=== PATIENT | female | born 1980 | race Caucasian/White ===

== ENCOUNTER → 2017-09-03 07:18 | Outpatient (CLI) | payer OTHER, MEDICAID, SELFPAY ==
--- NOTE | 2017-09-03 07:32 | XR_ITS ---
EXAM: XR cervical spine 5V HISTORY: ITS.REASON: NECK PAIN, LT ARM NEUROPATHY ORDERING PHYSICIAN: Patricia Sanchez PATIENT AGE: 37 years COMPARISON: None FINDINGS: Normal alignment. 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 There is mild posterior osteophyte at C3-C4 with mild degenerative disc disease at C3-C4 and mild left foraminal narrowing at C3-C4 from uncovertebral hypertrophy. There is mild upper cervical curvature convex left. No fracture or dislocation. No lytic or blastic change. IMPRESSION: 1. Klippel-Feil deformity of C2 and C3. 2. Degenerative disc disease C3-C4 with left foraminal narrowing and mild upper cervical curvature convex left
[2017-09-03 07:39] LABS: Basophils % 0.5 % (0.1-2.0); Eosinophils # 0.1 K/mm3 (0.0-0.4); Eosinophils % 0.7 % (0.1-12.0); Hematocrit 40.2 % (37.0-47.0); Lymphocytes % 26.7 K/mm3 (10-50); Mean Corpuscular HGB Conc 32.4 g/dL (31.8-35.4); Mean Corpuscular Hemoglobin 26.6 pg (27.0-31.2); Mean Corpuscular Volume 82.3 fl (81-99); Mean Platelet Volume 7.4 fl (7.4-10.4); Monocytes # 0.4 K/mm3 (0.1-1.0); Monocytes % 4.7 % (1.7-9.3); Neutrophils # 5.1 K/mm3 (1.8-7.8); Neutrophils % 67.4 % (37.0-80.0); Platelet Count 295 K/mm3 (142-424); Red Blood Count 4.88 M/mm3 (4.20-5.40); Red Cell Distribution Width 12.8 % (11.5-17.5); White Blood Count 7.5 K/mm3 (4.8-10.8)
[2017-09-03 08:11] LABS: Hemoglobin A1C 5.6 % (0.0-7.0)
[2017-09-03 08:26] LABS: Alanine Aminotransferase 15 U/L (12-78); Albumin Level 3.6 gm/dL (3.4-5.0); Alkaline Phosphatase 97 U/L (46-116); Anion Gap 12.9 mEq/L (5-15); Aspartate Amino Transferase 12 U/L (15-37); Bilirubin,Total 0.3 mg/dL (0.2-1.0); Blood Urea Nitrogen 11 mg/dL (7-18); Calcium 8.4 mg/dL (8.5-10.1); Carbon Dioxide 28 mmol/L (21.0-32.0); Chloride 104 mmol/L (98-107); Chol/HDL Ratio 3.8 (1-3.5); Cholesterol 208 mg/dL (140-200); Creatinine,Serum 0.81 mg/dL (0.55-1.02); Estimated Glomerular Filt Rate 80 ml/min (>60); GFR (African American) 96 ML/MIN (>60); Globulin 3.5 gm/dl (1.3-3.2); Glucose 103 mg/dL (74-106); HDL Cholesterol 55 mg/dL (29-89); LDL Cholesterol 140 mg/dL (0-130); Magnesium 2.1 mg/dL (1.4-2.2); Potassium 3.9 mmoL/L (3.5-5.1); Sodium 141 mmol/L (136-145); Thyroid Stimulating Hormone 2.45 uIU/ml (0.358-3.740); Total Protein,Serum 7.1 gm/dL (6.4-8.2); Triglycerides 67 mg/dL (30-200); VLDL Cholesterol 13 mg/dL (0-40)
[2017-09-03 08:40] LABS: C-Reactive Protein < 0.2 mg/L (0.0-0.9)
[2017-09-03 10:16] LABS: Erythrocyte Sedimentation Rate 19 mm/hr (0-20)
[2017-09-04 18:27] LABS: Vitamin B12 321 pg/mL (232-1245); Vitamin D 25 Hydroxy 18.7 ng/mL (30.0-100.0)
== END ==
PROVIDERS: PCP Nurse Practitioner Family; Visit Provider Nurse Practitioner Family
DX: M54.2 Cervicalgia (principal); K21.9 Gastro-esophageal reflux disease without esophagitis; G56.82 Other specified mononeuropathies of left upper limb
CPT/HCPCS: 36415; 72050; 80053; 80061; 82607; 82652; 83036; 83735; 84443; 85025; 85651; 86140

== ENCOUNTER → 2017-09-16 08:00 | Outpatient (CLI) | payer OTHER, MEDICAID, SELFPAY ==
--- NOTE | 2017-09-16 | XR_ITS ---
EXAM: XR lumbar spine min 4V HISTORY: ITS.REASON: LOW BACK PAIN ORDERING PHYSICIAN: Patricia Sanchez PATIENT AGE: 37 years COMPARISON: None FINDINGS: Normal alignment. No fracture or dislocation. No lytic or blastic change. No significant degenerative change. The disc spaces are preserved. There is a clip in the central pelvic region and one in the left mid abdominal area. Patient gives history of having tubal ligation. The upper clip could be loose. IMPRESSION: 1. 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 2. Left mid abdominal clip which could be a loose clip from the tubal ligation.
== END ==
PROVIDERS: PCP Nurse Practitioner Family; Visit Provider Nurse Practitioner Family
DX: M54.5 Low back pain (principal)
CPT/HCPCS: 72110

== ENCOUNTER → 2017-09-21 09:22 | Outpatient (CLI) | payer OTHER, MEDICAID, SELFPAY ==
--- NOTE | 2017-09-21 09:25 | US_ITS ---
US transvaginal HISTORY: ITS.REASON: Pelvic Pain, DUB ORDERING PHYSICIAN: Romel Arriola MD PATIENT AGE: 37 years COMPARISON: 01/08/2016 FINDINGS: Uterus measures 9.5 x 3.9 x 5.4 cm. Nabothian cysts are present. Combined endometrial thickness is 0.6 cm. No obvious uterine mass. Left ovary: 2.6 x 2 x 2 cm . Blood flow is present. There are multiple follicles measuring up to 1 cm The right ovary is 4.2 x 2.6 x 3 cm. There is a 2.8 x 1.7 cm cyst involving the right ovary. Blood flow is present in the ovary. Minimal amount fluid in the cul-de-sac. IMPRESSION: Mildly bulky uterus. No endometrial thickening. 1 cm right ovarian cyst. Cul-de-sac fluid
== END ==
PROVIDERS: PCP Nurse Practitioner Family; Visit Provider Obstetrics & Gynecology
DX: N93.8 Other specified abnormal uterine and vaginal bleeding (principal); R10.2 Pelvic and perineal pain
CPT/HCPCS: 76830

== ENCOUNTER → 2017-11-16 14:28 | Outpatient (CLI) | payer OTHER, MEDICAID, SELFPAY ==
[2017-11-16 14:37] LABS: Microscopic, Urine URINE MICROSCOPIC (MICROSCOPIC)
[2017-11-16 14:52] LABS: Appearance,Urine CLEAR (Clear); Bilirubin,Urine Negative (Negative); Blood, Urine TRACE-I (Negative); Color,Urine YELLOW (Yellow); Glucose,Urine (UA) Negative (Negative); Ketones,Urine Negative (Negative); Leukocyte Esterase,Urine Negative (Negative); Nitrate,Urine Negative (Negative); PH,Urine 6.5 (5.0-8.5); Protein,Urine Negative (Negative); Specific Gravity, Urine 1.015 (1.005-1.030); Urobilinogen,Urine 0.2 EU/dl (0.2)
[2017-11-16 14:54] LABS: Basophils % 0.5 % (0.1-2.0); Eosinophils % 0.4 % (0.1-12.0); Hematocrit 39.9 % (37.0-47.0); Hemoglobin 12.6 g/dL (12.2-16.2); Lymphocytes # 2.5 K/mm3 (0.7-4.5); Lymphocytes % 26.6 K/mm3 (10-50); Mean Corpuscular HGB Conc 31.7 g/dL (31.8-35.4); Mean Corpuscular Hemoglobin 26.6 pg (27.0-31.2); Mean Platelet Volume 7.4 fl (7.4-10.4); Monocytes # 0.4 K/mm3 (0.1-1.0); Monocytes % 4.6 % (1.7-9.3); Neutrophils # 6.5 K/mm3 (1.8-7.8); Platelet Count 322 K/mm3 (142-424); Red Blood Count 4.75 M/mm3 (4.20-5.40); Red Cell Distribution Width 12.6 % (11.5-17.5); White Blood Count 9.6 K/mm3 (4.8-10.8)
[2017-11-16 15:25] LABS: RBC,Urine Occasional #/hpf (0-3)
[2017-11-16 15:26] LABS: Bacteria,Urine Trace /lpf
[2017-11-16 16:16] LABS: Alanine Aminotransferase 19 U/L (12-78); Albumin Level 3.6 gm/dL (3.4-5.0); Alkaline Phosphatase 97 U/L (46-116); Anion Gap 11.8 mEq/L (5-15); Aspartate Amino Transferase 18 U/L (15-37); Bilirubin,Total 0.1 mg/dL (0.2-1.0); Blood Urea Nitrogen 10 mg/dL (7-18); Calcium 8.7 mg/dL (8.5-10.1); Carbon Dioxide 29 mmol/L (21.0-32.0); Chloride 104 mmol/L (98-107); Creatinine,Serum 0.88 mg/dL (0.55-1.02); Estimated Glomerular Filt Rate 72 ml/min (>60); GFR (African American) 87 ML/MIN (>60); Globulin 3.6 gm/dl (1.3-3.2); Glucose 79 mg/dL (74-106); Potassium 3.8 mmoL/L (3.5-5.1); Sodium 141 mmol/L (136-145); Total Protein,Serum 7.2 gm/dL (6.4-8.2)
[2017-11-18 10:08] LABS: HCG Qualitative, Serum Negative (Negative)
== END ==
PROVIDERS: PCP Nurse Practitioner Family; Visit Provider Obstetrics & Gynecology
DX: Z01.818 Encounter for other preprocedural examination (principal); N93.8 Other specified abnormal uterine and vaginal bleeding
CPT/HCPCS: 36415; 80053; 81001; 84703; 85025

== ENCOUNTER 2017-11-19 06:02 | Observation (INO) ==
--- NOTE | 2017-11-19 06:59 | Progress Note ---
[facility] Anesthesia Checklist - Structural Data Admitted From: Home Planned Operative Procedure/s: [facility] Consent for Planned Operative Procedure(s) Verified: Yes Verified Documents: Surgical Consent - Airway Assessment C-Spine Mobility Assessed: Yes TMJ Mobility Assessed: Yes Dentition: Good Dentition - Neurological Assessment Level of Consciousness: Awake, Alert, Appropriate - Anesthesia Plan Anesthesia Risk discussed: Yes Anesthesia Plan: Verified ASA Class: I Anesthesia Type: General [facility] Anesthesia HX I have reviewed the patient's past medical history: Yes Medical History: Denies:: Cancer, Diabetes Mellitus Type 1, Diabetes Mellitus Type 2, Internal Pacemaker, MRSA, Seizures Other Medical History: Reports: Anemia, Other. Denies: Blood Transfusion Reaction Other Surgeries: Yes: , Other. No: Pacemaker Amputation: No Fractures: No *Family Hx:: Diabetes, Hypertension, Cancer
--- NOTE | 2017-11-19 09:25 | Operative Note ---
Date of procedure: 11/19/17 Pre-op Diagnosis:: 1. Dysfunctional uterine bleeding 2. Stress incontinence. 3. Retained foreign bodies. Post-op Diagnosis:: 1. Dysfunctional uterine bleeding. 2. Stress urinary incontinence. Procedure performed:: Laparoscopically assisted vaginal hysterectomy. Surgeon:: Romel Arriola MD Finish Sander(s):: MARIA ELENA Cage RESIDENTIAL INSURANCE INSPECTOR:: Ambrose Goss Anesthesia: GETA Estimated blood loss (mL): 300 Operative findings:: 1. Dysfunctional uterine bleeding. 2. Foreign bodies not identified. Operative note:: After the patient was prepped and draped in usual fashion and general anesthesia was administered, examination under a boggy anteverted uterus, with no adnexal masses. A weighted speculum was placed within the posterior fourchette of the vagina, and the anterior lip of the cervix was grasped with a single-tooth tenaculum. A HUMI uterine elevator was inserted into the end manipulation during the laparoscopy. After appropriate regloving, the skin on either side of the umbilicus was tented up with towel clips. A small incision was made in the base of the umbilicus with a knife, and a Veress needle was inserted into the abdominal cavity. After demonstration of negative pressure, an adequate pneumoperitoneum was created with carbon dioxide gas. The Veress needle was then replaced with a trocar and cannula, using the PollVaultr system, and the trocar placed with the laparoscope. The uterus was symmetrically enlarged. Each tube showed evidence of previous ligation. Each ovary appeared normal. There was no pelvic pathology. The pelvis and upper abdomen was explored in an attempt to identify the foreign bodies (clips) that had been seen on the CT scan. However, they were unable to be seen. Returning to the pelvis, after transillumination and under direct visualization, accessory ports were placed in the right and left lower quadrants. Using a combination of endo- Babcocks and Endo TOMMIE staplers, the ovarian pedicles on each side were crossclamped and stapled, the leaving both adnexa in situ. The uterine vessels and the cardinal, uterosacral, and round ligaments were crossclamped and stapled bilaterally. The bladder peritoneum was then taken down with EndoShears. The instruments were then removed, and the abdomen was covered with sterile towels. The procedure was then continued from below. The HUMI was deflated and removed, a weighted speculum was placed within the peer fourchette of the vagina, and the double-tooth tenaculum, and retracted toward the introitus. The cervix was circumcised with a knife, and the vaginal mucosa was sharply and bluntly dissected free. A posterior colpotomy incision was made with Joey scissors, and the long lip of the weighted speculum was placed within the posterior peritoneum. The remaining pedicles on each side were Rafael, cut, and Rafael suture with #1 Vicryl, and then the anterior peritoneum was entered with Metzenbaum scissors, with a long right angle retractor placed within it. The uterus was flipped anteriorly, and the final pedicles were crossclamped and cut, thus removing the boggy uterine specimen. All pedicles were Rafael sutured, and then free tied with #1 Vicryl. There was no undue bleeding. The posterior vaginal cuff was run unlocked with #1 Vicryl, to include the uterosacral ligament pedicles for vaginal support, and a Chamorro fashion, to reduce the enterocele. The anterior peritoneum was closed with a running pursestring suture of 0 Vicryl, and pulled tight. The vaginal mucosa was closed with a running locked anteroposterior suture of #1 Vicryl. The sponge stick was then placed in the vagina for elevation of the vaginal cuff during the follow-up laparoscopy. After appropriate regloving, the pneumoperitoneum was re-established, and the pelvis was inspected with the laparoscope. There was no undue bleeding. The cuff was intact. The pneumoperitoneum was then reduced, and the skin incisions were infused with a dilute solution of Marcaine, as a local anesthetic, and closed with subcuticular sutures of 3-0 Vicryl. The wounds were appropriately dressed. The sponge stick was removed from the vagina. The urine is clear in the Robles catheter. The estimated blood loss was 300 cc. The patient tolerated the procedure well, and was taken to PACU in excellent condition. She will be observed overnight. Condition: stable Disposition: observation Specimens:: Uterus Complications:: None
--- NOTE | 2017-11-19 09:34 | Progress Note ---
[facility] Anesthesia Record Part II Discharge Time: 09:55 Destination: 2nd floor PACU nurse assessment reviewed?: Yes Patient Condition:: Good Anesthesia Complications:: None
--- NOTE | 2017-11-19 09:34 | Progress Note ---
[facility] Anesthesia Record Part I Intake, IV Amount: 1,800 Estimated blood loss (mL): 30 Urine output (mL): 0 Blood Pressure: 105/68 SaO2: 97 Pulse Rate: 77 Respiratory Rate: 16 Temperature: 97.7 F Patient is:: Drowsy, Stable Stable to PACU at:: 09:25
[2017-11-19 10:46] LABS: Hematocrit 34.8 % (37.0-47.0); Hemoglobin 11.1 g/dL (12.2-16.2)
--- NOTE | 2017-11-19 13:26 | Progress Note ---
Internal Medicine - PN: Subj *Date: 11/19/17 *Time: 13:25 (This is day of surgery. The patient is afebrile. Surgeries been explained to the patient. Her vital signs are stable. She is having some difficulty with pain control at this time. Going to remove her Robles and work on pain management.) Exam Vital signs and Labs for Last 24 Hours: Temp Pulse Resp BP Pulse Ox 97.7 F 83 16 111/73 98 11/19/17 11:45 11/19/17 11:45 11/19/17 11:45 11/19/17 11:45 11/19/17 11:45 Laboratory Results - last 24 hr 11/19/17 10:27: Hgb 11.1 L, Hct 34.8 L I & O for Last 24 hours: Intake & Output 11/17/17 11/18/17 11/19/17 11/20/17 11:59 11:59 11:59 11:59 Intake Total 1999 / 1999 Output Total 350 / 350 Balance 1650 / 1650 Weight 170 lb 169 lb 15.975 oz
--- NOTE | 2017-11-20 06:31 | Progress Note ---
Internal Medicine - PN: Subj *Date: 11/20/17 *Time: 06:30 (This is postop day #1. The patient is afebrile. Vital signs stable. Wounds clean. Abdomen soft. She is eating and ambulating and has had a bowel movement. She will be discharged today.) Exam Vital signs and Labs for Last 24 Hours: Temp Pulse Resp BP Pulse Ox 97.7 F 72 18 95/53 98 11/20/17 04:25 11/20/17 04:25 11/20/17 04:25 11/20/17 04:25 11/20/17 04:25 Laboratory Results - last 24 hr 11/19/17 07:33: Urine Color Yellow, Urine Appearance Clear, Urine pH 7.0, Ur Specific [place] 1.025, Urine Protein Negative, Urine Glucose (UA) Negative, Urine Ketones Negative, Urine Blood Trace-i, Urine Nitrate Negative, Urine Bilirubin Negative, Urine Urobilinogen 0.2, Ur Leukocyte Esterase Negative, Urine RBC 3-5, Urine WBC 3-5, Ur Squamous Epith Cells 20-50, Urine Bacteria 2+ A 11/19/17 10:27: Hgb 11.1 L, Hct 34.8 L I & O for Last 24 hours: Intake & Output 11/17/17 11/18/17 11/19/17 11/20/17 11:59 11:59 11:59 11:59 Intake Total 1999 / 1999 480 / 480 Output Total 350 / 350 Balance 1650 / 1650 480 / 480 Weight 170 lb 169 lb 15.975 oz
--- NOTE | 2017-11-20 06:45 | Discharge Summary ---
Hospital Course Hospital Course: This 37-year-old white female was admitted for definitive treatment of dysfunctional uterine bleeding and stress urinary incontinence. On the date of admission, she was taken to the operating room, where she underwent a laparoscopically assisted vaginal hysterectomy, without complications. Her adnexa remain in situ. She has had a previous tubal sterilization with Filshie clips, and a preop CT/ultrasound had shown what appeared to be "floating" clips above the level of the tubes. At surgery, the clips were not able to be identified, but they were not present on the fallopian tubes. Postoperatively, the patient is done well. She is eating and ambulating, and has had a bowel movement. Her wounds are clean. Her abdomen is soft. Her urine output is good. She is not a smoker. She is discharged home on the first postoperative day on Percocet 5/325 (#30), 1 p.o. every 4 hours as needed pain. She is given appropriate instructions as to diet, exercise, and wound care, and she is to return to the office in 2 weeks. Objective Vital signs: Temp Pulse Resp BP Pulse Ox 97.7 F 72 18 95/53 98 11/20/17 04:25 11/20/17 04:25 11/20/17 04:25 11/20/17 04:25 11/20/17 04:25 Results Labs on day of discharge: Labs from last 24 hours 11/19/17 11/19/17 10:27 07:33 Hgb 11.1 L Hct 34.8 L Urine Color Yellow Urine Appearance Clear Urine pH 7.0 Ur Specific [place] 1.025 Urine Protein Negative Urine Glucose (UA) Negative Urine Ketones Negative Urine Blood Trace-i Urine Nitrate Negative Urine Bilirubin Negative Urine Urobilinogen 0.2 Ur Leukocyte Esterase Negative Urine RBC 3-5 Urine WBC 3-5 Ur Squamous Epith Cells 20-50 Urine Bacteria 2+ A Discharge Plan - Patient Discharge Instructions ACTIVITY: Ambulate as tolerated DIET: advance to your usual diet - Follow up Plan Disposition: Home, Self-Jail Medications: Home Medications Medication Instructions Recorded Confirmed Type multivitamin tablet 1 tab PO QAM 09/18/17 11/19/17 History Chlorhexidine Gluconate 1 applic TOPICAL ONCE 11/18/17 11/18/17 History Omeprazole [Omeprazole 40mg 40 mg PO DAILY 11/18/17 11/19/17 History Capsule] Prescriptions/Medication Reconciliation: New Oxycodone HCl/Acetaminophen [Percocet 5/325mg tablet] 1 tab PO Q4HP PRN #30 tablet PRN Reason: Moderate To Severe Pain Continue multivitamin tablet 1 tab PO QAM Omeprazole [Omeprazole 40mg Capsule] 40 mg PO DAILY Chlorhexidine Gluconate 1 applic TOPICAL ONCE
== END 2017-11-20 10:00 | disposition home or self-care (01) ==
LOC: 2ND 06:02 → OR 06:02 → OB 10:15
PROVIDERS: ADMIT Obstetrics & Gynecology; ATTEND Obstetrics & Gynecology

== ENCOUNTER 2018-03-23 12:55 | Observation (INO) ==
--- NOTE | 2018-03-23 13:00 | Emergency Department Note ---
ED Disposition Clinical Impression: Precordial chest pain, Upper abdominal pain Disposition: Still a Patient Condition on Discharge: Fair Referrals: Patricia Sanchez [Primary Care Provider] - - Critical Care Critical Care Time: No Attestation: On , the high probability of a clinically significant, sudden or life threatening deterioration of the following system(s) required my full and direct attention, intervention and personal management. The time I documented below is in addition to time spent performing reported procedures but includes the following listed in this critical care notation. Medical Decision Making - Jaxson Inquiry Pt receiving controlled substance: No Vital Signs: 03/23/18 12:56 03/23/18 13:44 03/23/18 14:23 Temperature 97.9 F Temperature Source Oral Pulse Rate [Right Brachial] 84 78 67 Respiratory Rate 22 20 20 Blood Pressure [Right Arm] 136/74 130/68 129/87 Blood Pressure Mean [Right Arm] 94 88 101 Blood Pressure Source [Right Arm] Automatic Cuff Automatic Cuff Automatic Cuff Blood Pressure Position [Right Arm] Sitting Sitting Sitting 02 Sat by Pulse Oximetry 98 97 99 Oxygen Delivery Method Room Air 03/23/18 14:48 03/23/18 15:34 03/23/18 16:15 Temperature Temperature Source Pulse Rate [Right Brachial] 75 80 67 Respiratory Rate 16 20 20 Blood Pressure [Right Arm] 121/69 129/78 130/85 Blood Pressure Mean [Right Arm] 86 95 100 Blood Pressure Source [Right Arm] Automatic Cuff Automatic Cuff Automatic Cuff Blood Pressure Position [Right Arm] Sitting Sitting Sitting 02 Sat by Pulse Oximetry 100 99 99 Oxygen Delivery Method - Lab Data Lab Results 03/23/18 13:00: WBC 11.8 H, RBC 5.12, Hgb 13.5, Hct 41.5, MCV 81.0, MCH 26.4 L, MCHC 32.7, RDW 13.3, Plt Count 315, MPV 7.0 L, Neut % (Auto) 64.1, Lymph % (Auto ) 30.0, [place] % (Auto) 4.7, Eos % (Auto) 0.7, Baso % (Auto) 0.6, Neut # (Auto) 7.5, Lymph # (Auto) 3.5, [place] # (Auto) 0.6, Eos # (Auto) 0.1, Baso # (Auto) 0.1 03/23/18 13:00: Sodium 139, Potassium 3.3 L, Chloride 101, Carbon Dioxide 29, Anion Gap 12.3, BUN 12, Creatinine 1.25 H, Estimated Creat Clear 79, Estimated GFR 48 L, Est GFR ( Amer) 58 L, Glucose 100, Calcium 9.3, Troponin I < 0.02 03/23/18 13:00: Total Bilirubin 0.3, Direct Bilirubin 0.1, Indirect Bilirubin 0.2, AST 15, ALT 22, Alkaline Phosphatase 100, Total Protein 8.1, Albumin 3.8, Lipase 124 03/23/18 13:00: D-Dimer 317 Result diagrams: 03/23/18 13:00 03/23/18 13:00 Orders (Tests/Meds): ED MEDICATIONS Discontinued Medications Generic Name Dose Route Start Last Admin Trade Name Freq PRN Reason Stop Dose Admin Aspirin 324 mg 03/23/18 13:06 03/23/18 13:06 Aspirin 81mg Enteric Coated Tablet PO 03/23/18 13:07 324 mg ONCE ONE Administration Famotidine 20 mg 03/23/18 13:13 03/23/18 13:24 Pepcid 20mg/2ml Vial IV 03/23/18 13:14 20 mg ONCE ONE Administration Ketorolac Tromethamine 30 mg 03/23/18 13:13 03/23/18 13:24 Toradol 30mg/Ml Vial IV 03/23/18 13:14 30 mg ONCE ONE Administration Morphine Sulfate 4 mg 03/23/18 14:20 03/23/18 14:35 Morphine 4mg/Ml Syringe IV 03/23/18 14:21 4 mg ONCE ONE Administration Ondansetron HCl 4 mg 03/23/18 13:13 03/23/18 13:24 Zofran 4mg/2ml Vial IV 03/23/18 13:14 4 mg ONCE ONE Administration Potassium Chloride 40 meq 03/23/18 13:40 03/23/18 14:09 Klor-Con 20meq Tablet PO 03/23/18 13:41 40 meq ONCE ONE Administration Promethazine HCl 12.5 mg 03/23/18 14:20 03/23/18 14:34 Phenergan 25mg/Ml 1ml Vial IV 03/23/18 14:21 12.5 mg ONCE ONE Administration Sodium Chloride 1,000 ml 03/23/18 13:40 03/23/18 14:09 Sod Chlor 0.9% 1000ml Bag IV 03/23/18 13:41 1,000 ml BOLUS ONE Administration Sodium Chloride 25 ml 03/23/18 14:20 03/23/18 14:35 Sod Chlor 0.9% 25ml Bag IV 03/23/18 14:21 25 ml ONCE ONE Administration ORDERS Category Date Time Status Troponin I Stat Lab 03/23/18 16:16 Received 12-lead EKG Request [ECG Request by /Misbah] Stat Y 03/23/18 13:03 Ordered - Radiology Data #1 Image(s): Chest Image Reviewed: Yes I have reviewed radiologist's interpretation Patchy density right base with elevated diaphragm, questionable atelectasis or infiltrate. Of note, CT scan shows no abnormalities in the lung bases. - CT Data CT Scan: Abdomen, Pelvis Time Received: 16:[address] Reviewed: Yes: I have viewed the radiologist's interpretation Findings Narrative: Fluid in the cul-de-sac. Diverticulosis. No diverticulitis. Lung bases clear. - US Data US Images: Gallbladder ED US Reviewed: Yes: I have viewed radiologist's interpretation Preliminary Findings: Normal/NAD - ECG Data Tracing #1 EKG interpreted by Cash Arredondo MD: Rhythm: sinus tachycardia Rate: 112 [place]: normal Ectopy: none Conduction: normal ST Segment Changes: none T Wave Changes: none Q Waves: none No evidence of acute ischemia or injury Baseline artifact and wander present, but I consider the EKG adequate for accurate interpretation. - Physician Consults Physician Consulted: Bri Time: 16:11 Reason -: Admission Comment/Response: Agrees to admit the patient to the hospital. We discussed the patient's clinical information, including history, exam, laboratory and radiology results and ED course. Per hospital procedure, I will write temporary bridge inpatient orders on the patient. Specific orders requested by the admitting physician: Serial cardiac enzymes, IV fluids, medication for pain and nausea - Reevaluation(s) Time: 14:26 Reevaluation #1: Very nauseated. Pain is a little bit better. Discussed gallbladder ultrasound with Kacy power tool repair technician. She will attempt the ultrasound, if unable to visualize gallbladder she will cancel the test, given that patient's last oral intake was 6 hours ago. General Adult HPI - General Stated complaint: CHEST PAIN Time Seen by Provider: 03/23/18 13:00 - History of Present Illness HPI narrative: Complains of chest pain, epigastric pain, nausea and vomiting since about 7 AM. Had some nausea seems as well. Pain radiates to her back. Also has a sense of acid reflux up into her throat. Coughing, but no hemoptysis. Recently had a hysterectomy 11/19/17. No leg pain or swelling. - Related Data Home Medications Medication Instructions Recorded Confirmed Omeprazole [Omeprazole 40mg 40 mg PO DAILY 11/18/17 03/23/18 Capsule] Allergies Allergy/AdvReac Type Severity Reaction Status Date / Time Penicillins Allergy Verified 03/23/18 13:05 [facility] History I have reviewed the patient's past medical history: Yes Medical History: Denies:: Seizures Other Medical History: Reports: Anemia, Other. Denies: Blood Transfusion Reaction Other Surgeries: Yes: , Tubal Ligation, Other Amputation: No Fractures: No Comment: Primary C/S--1999. BTL--09/21/2001. Dx HSC, Fx D&C, Anterior Repair-- 02/15/2016. Cyst Removed form ovary--02/15/2016. Left leg vein removal--2016. LAVH--11/19/17 - Social History Smoking Status: Never smoker Tobacco Type: cigarettes Alcohol Intake: never Substance Use Type: denies use Family Hx:: Diabetes, Hypertension, Cancer ROS Obtained: Yes All systems reviewed & no additional complaints - Constitutional Constitutional: Denies fever(s) - Cardiovascular Cardiovascular: Reports chest pain, Denies edema, Denies leg edema - Respiratory Respiratory: Yes cough, Yes dyspnea, No coughing up blood - Gastrointestinal Gastrointestingal: Reports: abdominal pain (epigastric), nausea, vomiting Physical Exam - General General appearance: alert, in no apparent distress - Head Head exam: atraumatic, normocephalic, normal inspection - Eye Eye exam: Present: normal appearance, PERRL, EOMI - ENT ENT exam: Present: mucous membranes moist - Neck Neck exam: Present: normal inspection, full ROM, trachea midline. Absent: meningismus, lymphadenopathy - Chest Chest inspection: Present: normal inspection, symmetric chest wall rise. Absent : tenderness - Respiratory Respiratory exam: Present: normal lung sounds bilaterally. Absent: respiratory distress - Cardiovascular Cardiovascular exam: Present: regular rate, normal rhythm. Absent: JVD - Abdominal Exam Abdominal exam: Present: soft, tenderness, normal bowel sounds. Absent: distention, guarding Abdominal tenderness: Present: epigastrium, moderate - Extremities Exam Extremities exam: Present: normal inspection, full ROM, normal capillary refill. Absent: calf tenderness - Back Exam Back exam: Present: normal inspection. Absent: tenderness - Neurological Exam Neurological exam: Present: alert, oriented X3 - Psychiatric Psychiatric exam: Present: anxious - Skin Skin exam: Present: warm, dry, intact, normal color
[2018-03-23 13:21] LABS: Basophils # 0.1 K/mm3 (0-0.2); Basophils % 0.6 % (0.1-2.0); Eosinophils # 0.1 K/mm3 (0.0-0.4); Eosinophils % 0.7 % (0.1-12.0); Hematocrit 41.5 % (37.0-47.0); Hemoglobin 13.5 g/dL (12.2-16.2); Lymphocytes # 3.5 K/mm3 (0.7-4.5); Mean Corpuscular HGB Conc 32.7 g/dL (31.8-35.4); Mean Corpuscular Hemoglobin 26.4 pg (27.0-31.2); Monocytes # 0.6 K/mm3 (0.1-1.0); Monocytes % 4.7 % (1.7-9.3); Neutrophils # 7.5 K/mm3 (1.8-7.8); Neutrophils % 64.1 % (37.0-80.0); Platelet Count 315 K/mm3 (142-424); Red Blood Count 5.12 M/mm3 (4.20-5.40); Red Cell Distribution Width 13.3 % (11.5-17.5); White Blood Count 11.8 K/mm3 (4.8-10.8)
[2018-03-23 13:28] LABS: Anion Gap 12.3 mEq/L (5-15); Blood Urea Nitrogen 12 mg/dL (7-18); Calcium 9.3 mg/dL (8.5-10.1); Carbon Dioxide 29 mmol/L (21.0-32.0); Chloride 101 mmol/L (98-107); Glucose 100 mg/dL (74-106); Potassium 3.3 mmoL/L (3.5-5.1); Sodium 139 mmol/L (136-145)
[2018-03-23 13:32] LABS: Albumin Level 3.8 gm/dL (3.4-5.0); Bilirubin,Direct 0.1 mg/dL (0.0-0.2); Bilirubin,Indirect 0.2 mg/dL (0.0-0.9); Bilirubin,Total 0.3 mg/dL (0.2-1.0); Total Protein,Serum 8.1 gm/dL (6.4-8.2)
[2018-03-24 05:59] LABS: Basophils % 0.6 % (0.1-2.0); Eosinophils # 0.1 K/mm3 (0.0-0.4); Eosinophils % 1.3 % (0.1-12.0); Hematocrit 34.4 % (37.0-47.0); Lymphocytes # 2.6 K/mm3 (0.7-4.5); Lymphocytes % 37.3 K/mm3 (10-50); Mean Corpuscular HGB Conc 32.3 g/dL (31.8-35.4); Mean Corpuscular Hemoglobin 26.8 pg (27.0-31.2); Mean Corpuscular Volume 82.9 fl (81-99); Monocytes # 0.4 K/mm3 (0.1-1.0); Monocytes % 5.1 % (1.7-9.3); Neutrophils # 3.9 K/mm3 (1.8-7.8); Neutrophils % 55.7 % (37.0-80.0); Platelet Count 271 K/mm3 (142-424); Red Blood Count 4.15 M/mm3 (4.20-5.40); Red Cell Distribution Width 13.3 % (11.5-17.5)
[2018-03-24 06:10] LABS: Hemoglobin 11.2 g/dL (12.2-16.2)
[2018-03-24 06:59] LABS: Calcium 7.8 mg/dL (8.5-10.1)
--- NOTE | 2018-03-24 07:17 | Pharmacy Consult Notes ---
[facility] Pharmacy VTE Monitoring - Patient Demographics Admission date: 03/23/18 Report Date: 03/24/18 Time: 07:17 Allergies/Adverse Reactions: Patient Allergies Penicillins Allergy (Verified 03/23/18 13:05) Height: 1.6 m Weight: 80.824 kg Patient Problems: Current Active Problems Precordial chest pain (Acute) Upper abdominal pain (Acute) - VTE Risk Labs: VTE Related Lab Results Hgb 11.2 g/dL (12.2-16.2) L D 03/24/18 05:22 Hct 34.4 % (37.0-47.0) L 03/24/18 05:22 Plt Count 271 K/mm3 (142-424) 03/24/18 05:22 BUN 13 mg/dL (7-18) 03/24/18 05:22 Creatinine 0.92 mg/dL (0.55-1.02) D 03/24/18 05:22 Estimated Creat Clear 107 mL/min (0-300) 03/24/18 05:22 Was VTE Risk Assessment Performed: Yes VTE Score: 2 VTE Risk Level: Very Low Risk - Prophylaxis VTE Prophylaxis Ordered?: Yes Types of VTE Prophylaxis: TEDS Knee High Location of Applied Device: Bilateral Lower Extremeties - VTE Diagnosis Confirmed Treatment or plan recommended: Continue Current Treatment
--- NOTE | 2018-03-24 09:17 | History & Physical Report ---
*Admission Date: 03/23/18 *Chief complaint: abd pain *History of present illness: this wf presents with upper abd pain and was seen in the ed -mplains of chest pain, epigastric pain, nausea and vomiting since about 7 AM. Had some nausea seems as well. Pain radiates to her back. Also has a sense of acid reflux up into her throat. Coughing, but no hemopt- and she had chest pain assoc with this abd pain - pt with pain that did not respond to ed treatment and was admitted for eval and treatment [facility] History I have reviewed the patient's past medical history: Yes Medical History: Denies:: Cancer, Diabetes Mellitus Type 1, Diabetes Mellitus Type 2, Seizures Other Medical History: Reports: Anemia, Other. Denies: Blood Transfusion Reaction Other Surgeries: Yes: , Tubal Ligation, Other Amputation: No Fractures: No - *Social History Educational Level: Completed High School Smoking Status: Never smoker Tobacco Type: cigarettes Alcohol Intake: never Substance Use Type: denies use Occupational Status: employed Housing: house Household Members: spouse, children - Psychiatric History Expresses thoughts of harming self/others: None Suicide Plan Description: No Plan *Family Hx:: Diabetes, Hypertension, Cancer Review of Systems - Review of Systems Review of systems:: pertinent systems reviewed and negative unless documented below - Constitutional Denies fever(s) - Eyes Denies change in vision - ENT Denies sore throat - *Cardiovascular Reports chest pain - *Respiratory Denies cough, Denies coughing up blood - *Gastrointestinal Reports abdominal pain, Reports nausea, Reports vomiting, Denies black, tarry stools - *Genitourinary Denies blood in urine, Denies pelvic pain - *Musculoskeletal Denies joint pain, Denies joint swelling - Integumentary/Breasts Denies rash - *Neurologic Denies headache(s), Denies seizure-like activity - Psychiatric Denies anxiety Meds Home Medications Medication Instructions Recorded Confirmed Type Omeprazole [Omeprazole 40mg 40 mg PO DAILY 11/18/17 03/23/18 History Capsule] SUMAtriptan succinate [Sumatriptan 50 mg PO DIRECTED PRN 03/24/18 03/24/18 History Succinate] Allergies Allergy/AdvReac Type Severity Reaction Status Date / Time Penicillins Allergy Verified 03/23/18 13:05 Exam Vital signs and Labs for Last 24 Hours: Temp Pulse Resp BP Pulse Ox 98.2 F 80 18 93/54 97 03/24/18 07:31 03/24/18 07:31 03/24/18 07:31 03/24/18 07:31 03/24/18 07:31 Laboratory Results - last 24 hr 03/23/18 13:00: WBC 11.8 H, RBC 5.12, Hgb 13.5, Hct 41.5, MCV 81.0, MCH 26.4 L, MCHC 32.7, RDW 13.3, Plt Count 315, MPV 7.0 L, Neut % (Auto) 64.1, Lymph % (Auto ) 30.0, Ramsey % (Auto) 4.7, Eos % (Auto) 0.7, Baso % (Auto) 0.6, Neut # (Auto) 7.5, Lymph # (Auto) 3.5, Ramsey # (Auto) 0.6, Eos # (Auto) 0.1, Baso # (Auto) 0.1 03/23/18 13:00: Sodium 139, Potassium 3.3 L, Chloride 101, Carbon Dioxide 29, Anion Gap 12.3, BUN 12, Creatinine 1.25 H, Estimated Creat Clear 79, Estimated GFR 48 L, Est GFR ( Amer) 58 L, Glucose 100, Calcium 9.3, Troponin I < 0.02 03/23/18 13:00: Total Bilirubin 0.3, Direct Bilirubin 0.1, Indirect Bilirubin 0.2, AST 15, ALT 22, Alkaline Phosphatase 100, Total Protein 8.1, Albumin 3.8, Lipase 124 03/23/18 13:00: D-Dimer 317 03/23/18 16:16: Troponin I < 0.02 03/23/18 19:49: Troponin I < 0.02 03/23/18 22:45: Troponin I < 0.02 03/24/18 05:22: WBC 7.0 D, RBC 4.15 L, Hgb 11.2 L D, Hct 34.4 L, MCV 82.9, MCH 26.8 L, MCHC 32.3, RDW 13.3, Plt Count 271, MPV 7.0 L, Neut % (Auto) 55.7, Lymph % (Auto) 37.3, Ramsey % (Auto) 5.1, Eos % (Auto) 1.3, Baso % (Auto) 0.6, Neut # (Auto) 3.9, Lymph # (Auto) 2.6, Ramsey # (Auto) 0.4, Eos # (Auto) 0.1, Baso # (Auto) 0.0 03/24/18 05:22: Sodium 143, Potassium 4.0 D, Chloride 111 H, Carbon Dioxide 27 , Anion Gap 9.0, BUN 13, Creatinine 0.92 D, Estimated Creat Clear 107, Estimated GFR 69, Est GFR ( Amer) 83 D, Glucose 87, Calcium 7.8 L D I & O for Last 24 hours: Intake & Output 03/21/18 03/22/18 03/23/18 03/24/18 11:59 11:59 11:59 11:59 Intake Total 2865 / 2865 Output Total 400 / 400 Balance 2465 / 2465 Weight 178 lb 3 oz - Constitutional no acute distress - *Routine HEENT Exam Head: Present: normocephalic Eye: Present: EOMI, PERRL ENT: Present: mucous membranes dry - *Routine Neck Exam Present: supple - *Routine Respiratory Exam Present: CTA bilaterally - *Routine Cardiovascular Exam Present: murmur - *Routine Abdominal Exam Present: soft, tenderness - *Routine Extremities Exam Present: full ROM - *Routine Skin Exam Present: intact - *Routine Neurological Exam Present: alert, oriented X3, CN II-XII intact - Routine Psychiatric Exam Present: normal affect H&P: Result - Labs Labs: Short CBC 03/23/18 03/24/18 Range/Units 13:00 05:22 WBC 11.8 H 7.0 D (4.8-10.8) K/mm3 Hgb 13.5 11.2 L D (12.2-16.2) g/dL Hct 41.5 34.4 L (37.0-47.0) % Plt Count 315 271 (142-424) K/mm3 BMP 03/23/18 03/24/18 13:00 05:22 Sodium 139 143 Potassium 3.3 L 4.0 D Chloride 101 111 H Carbon Dioxide 29 27 BUN 12 13 Creatinine 1.25 H 0.92 D Glucose 100 87 Calcium 9.3 7.8 L D Cardiac Enzymes 03/23/18 03/23/18 03/23/18 Range/Units 13:00 16:16 19:49 Troponin I < 0.02 < 0.02 < 0.02 (0.00-0.06) ng/ml 03/23/18 Range/Units 22:45 Troponin I < 0.02 (0.00-0.06) ng/ml Liver Function 03/23/18 Range/Units 13:00 Total Bilirubin 0.3 (0.2-1.0) mg/dL Direct Bilirubin 0.1 (0.0-0.2) mg/dL AST 15 (15-37) U/L ALT 22 (12-78) U/L Alkaline Phosphatase 100 (46-116) U/L Albumin 3.8 (3.4-5.0) gm/dL Assessment and Plan (1) Chest pain Current visit: Yes Status: Acute Category: Medical Code(s): R07.9 - Chest pain, unspecified (2) Upper abdominal pain Current visit: Yes Status: Acute Category: Medical Code(s): R10.10 - Upper abdominal pain, unspecified
--- NOTE | 2018-03-25 06:56 | Consult Report ---
*Admission Date: 03/23/18 *Chief complaint: Right upper quadrant abdominal pain and nausea *History of present illness: This is a 37-year-old female seen in consultation from Dr. Gregory for evaluation regarding likely gallbladder disease. She presented with increasing pain in the right upper quadrant that she states is mostly postprandial. Intermittent nausea over the past few weeks. No jaundice. No fevers. Evaluation including an ultrasound and hepatobiliary scan showed changes consistent with biliary dyskinesia. She did complain of chest pain and has subsequently "ruled out" for cardiac origin. Review of Systems - Constitutional Denies body ache(s) - Eyes Denies change in vision - ENT Denies change in voice - *Cardiovascular Denies generalized swelling - *Respiratory Denies cough - *Gastrointestinal Reports abdominal pain - *Genitourinary Denies abnormal vaginal bleeding - *Musculoskeletal Denies abnormal walking - Integumentary/Breasts Denies bleeding lesions - *Neurologic Denies abnormal movements - Psychiatric Denies anxiety - Endocrine Denies cold intolerance - Hematologic/Lymphatic Denies easy bleeding - Allergic/Immunologic Reports GI upset with certain foods [facility] History Medical History: Denies:: Cancer, Diabetes Mellitus Type 1, Diabetes Mellitus Type 2, Seizures Other Medical History: Reports: Anemia, Other. Denies: Blood Transfusion Reaction Other Surgeries: Yes: , Tubal Ligation, Other Amputation: No Fractures: No - *Social History Educational Level: Completed High School Smoking Status: Never smoker Tobacco Type: cigarettes Alcohol Intake: never Substance Use Type: denies use Occupational Status: employed Housing: house Household Members: spouse, children - Psychiatric History Expresses thoughts of harming self/others: None Suicide Plan Description: No Plan *Family Hx:: Diabetes, Hypertension, Cancer Meds Home Medications Medication Instructions Recorded Confirmed Type Omeprazole [Omeprazole 40mg 40 mg PO DAILY 11/18/17 03/23/18 History Capsule] SUMAtriptan succinate [Sumatriptan 50 mg PO DIRECTED PRN 03/24/18 03/24/18 History Succinate] Allergies Allergy/AdvReac Type Severity Reaction Status Date / Time Penicillins Allergy Verified 03/23/18 13:05 Exam Vital signs and Labs for Last 24 Hours: Temp Pulse Resp BP Pulse Ox 98.0 F 60 18 104/53 96 03/25/18 03:51 03/25/18 04:00 03/25/18 03:51 03/25/18 03:51 03/25/18 03:51 Laboratory Results - last 24 hr 03/24/18 05:22: Calcium 7.8 L D I & O for Last 24 hours: Intake & Output 03/22/18 03/23/18 03/24/18 03/25/18 11:59 11:59 11:59 11:59 Intake Total 2865 / 2865 2165 / 2165 Output Total 400 / 400 400 / 400 Balance 2465 / 2465 1765 / 1765 Weight 178 lb 3 oz - Constitutional no acute distress - *Routine Respiratory Exam Absent: respiratory distress - *Routine Cardiovascular Exam Present: RRR - *Routine Abdominal Exam Present: soft, tenderness Comments: RUQ Results - Labs 03/24/18 05:22 03/24/18 05:22 Laboratory Results - last 24 hr 03/24/18 05:22: Calcium 7.8 L D Assessment and Plan (1) Biliary dyskinesia Current visit: Yes Status: Acute Category: Surgical Code(s): K82.8 - Other specified diseases of gallbladder Laparoscopic cholecystectomy-I have discussed the risks and benefits and she agrees to proceed
--- NOTE | 2018-03-25 09:17 | Progress Note ---
Internal Medicine - PN: Subj *Date: 03/25/18 *Time: 09:16 Exam Vital signs and Labs for Last 24 Hours: Temp Pulse Resp BP Pulse Ox 98.8 F 78 18 111/68 95 03/25/18 08:00 03/25/18 08:00 03/25/18 08:00 03/25/18 08:00 03/25/18 08:00 I & O for Last 24 hours: Intake & Output 03/22/18 03/23/18 03/24/18 03/25/18 11:59 11:59 11:59 11:59 Intake Total 2865 / 2865 3511 / 3511 Output Total 400 / 400 400 / 400 Balance 2465 / 2465 3111 / 3111 Weight 178 lb 3 oz - Constitutional no acute distress - *Routine HEENT Exam Head: Present: normocephalic Eye: Present: PERRL ENT: Present: mucous membranes moist - *Routine Respiratory Exam Present: CTA bilaterally - *Routine Cardiovascular Exam Present: RRR - *Routine Abdominal Exam Present: soft, tenderness Comments: positive brooks sign - *Routine Extremities Exam Present: full ROM - *Routine Skin Exam Present: intact - *Routine Neurological Exam Present: alert, oriented X3, CN II-XII intact - Routine Psychiatric Exam Present: normal affect, normal thought process Assessment and Plan (1) Chest pain Current visit: Yes Status: Acute Category: Medical Code(s): R07.9 - Chest pain, unspecified (2) Upper abdominal pain Current visit: Yes Status: Acute Category: Medical Code(s): R10.10 - Upper abdominal pain, unspecified - Assessment and plan all Dx Assessment and Plan for all problems:: rounded with eva, all orders per eva gallbladder removed today
--- NOTE | 2018-03-25 14:30 | Operative Note ---
Date of procedure: 03/25/18 Pre-op Diagnosis:: Biliary dyskinesia Post-op Diagnosis:: Chronic cholecystitis Procedure performed:: Laparoscopic cholecystectomy Surgeon:: Scotty Grimm MD Resource Paraprofessional(s):: Carmine TANK WAGON OPERATOR:: Ambrose Goss Anesthesia: GETA Estimated blood loss (mL): 10 Operative findings:: Moderate pericholecystic fat stranding and mild wall thickening Operative note:: After informed consent was obtained, the patient was taken to the operating room and placed in the supine position. General anesthesia was induced and the abdomen was prepped and draped in a sterile fashion. After infiltration with local anesthetic an infraumbilical incision was made. A Veress needle was placed in position. The abdomen was insufflated. A 5 mm optical trocar was placed in position. Under direct visualization, a 12 mm trocar was placed in the subxiphoid position and 2 additional 5 mm trocars were placed in the right upper quadrant. The gallbladder was elevated up and over the liver margin. The tissue around the cystic duct was carefully dissected. 3 clips were placed proximally and the duct was transected with harmonic lily. Harmonic lily were then utilized to dissect the gallbladder away from the liver margin with careful attention to the control of the cystic artery. The gallbladder was placed in a retrieval bag and removed through the subxiphoid trocar site. The right upper quadrant was thoroughly irrigated. No active bleeding or bile leak was noted. Fascia at the subxiphoid trocar site was reapproximated utilizing the NeoClose device and 0 Ethibond. The remaining trocars were removed. All wounds were irrigated and skin was closed with 4-0 Monocryl in a subcuticular fashion. Steri-Strips were applied. The patient's anesthetic agents were reversed and extubation was completed prior to transfer to recovery in stable condition. Condition: stable Disposition: PACU Specimens:: Gallbladder and contents Complications:: No immediate
--- NOTE | 2018-03-25 14:38 | Progress Note ---
[facility] Anesthesia Checklist - Patient Identification Patient Identification: Arm Band - Structural Data Admitted From: Home Planned Operative Procedure/s: lap quincy Consent for Planned Operative Procedure(s) Verified: Yes Verified Documents: Surgical Consent, History and Physical - NPO Status Verified Time NPO: 00:00 - Additional verifications Anesthesia Reactions: No - Airway Assessment C-Spine Mobility Assessed: Yes (mp2) TMJ Mobility Assessed: Yes Dentition: Good Dentition - Neurological Assessment Level of Consciousness: Awake, Alert - Anesthesia Plan Anesthesia Risk discussed: Yes Anesthesia Plan: Verified ASA Class: II Anesthesia Type: General [facility] Anesthesia HX I have reviewed the patient's past medical history: Yes Medical History: Reports:: Gastroesophageal Reflux Disease(GERD) Denies:: Cancer, Diabetes Mellitus Type 1, Diabetes Mellitus Type 2, Seizures Other Medical History: Reports: Anemia, Other. Denies: Blood Transfusion Reaction Other Surgeries: Yes: , Tubal Ligation, Other Amputation: No Fractures: No *Family Hx:: Diabetes, Hypertension, Cancer
--- NOTE | 2018-03-25 14:39 | Progress Note ---
[facility] Anesthesia Record Part I Intake, IV Amount: 1,500 Estimated blood loss (mL): 10 Urine output (mL): 0 Blood Pressure: 109/87 SaO2: 95 Pulse Rate: 87 Respiratory Rate: 16 Temperature: 100 F Patient is:: Drowsy, Stable Stable to PACU at:: 14:35
--- NOTE | 2018-03-25 14:39 | Progress Note ---
[facility] Anesthesia Record Part II Discharge Time: 15:05 Destination: 2nd floor PACU nurse assessment reviewed?: Yes Patient Condition:: Good Anesthesia Complications:: None
--- NOTE | 2018-03-26 06:44 | Progress Note ---
Subjective Patient reports: other ("doing fine") Exam Vital signs and Labs for Last 24 Hours: Temp Pulse Resp BP Pulse Ox 98.3 F 78 16 112/60 92 L 03/26/18 04:00 03/26/18 04:00 03/26/18 04:00 03/26/18 04:00 03/26/18 04:00 I & O for Last 24 hours: Intake & Output 03/23/18 03/24/18 03/25/18 03/26/18 11:59 11:59 11:59 11:59 Intake Total 2865 / 2865 3511 / 3511 1740 / 1740 Output Total 400 / 400 400 / 400 2200 / 2200 Balance 2465 / 2465 3111 / 3111 -460 / -460 Weight 178 lb 3 oz - Constitutional no acute distress - *Routine Respiratory Exam Absent: respiratory distress - *Routine Abdominal Exam Present: soft Progress Note: A&P (1) Chest pain Status: Acute Current Visit: Yes (2) Upper abdominal pain Status: Acute Current Visit: Yes (3) Chronic cholecystitis Status: Acute Assessment and plan: stable s/p lap quincy no heavy lifting slowly advance diet as tolerated Current Visit: Yes
--- NOTE | 2018-03-26 09:42 | Discharge Summary ---
General - General Admission date:: 03/23/18 Discharge date: 03/26/18 HPI HPI: this wf presents with upper abd pain and was seen in the ed -mplains of chest pain, epigastric pain, nausea and vomiting since about 7 AM. Had some nausea seems as well. Pain radiates to her back. Also has a sense of acid reflux up into her throat. Coughing, but no hemopt- and she had chest pain assoc with this abd pain - pt with pain that did not respond to ed treatment and was admitted for eval and treatment Hospital Course Hospital Course: wf with s is a 37-year-old female seen in consultation from Dr. Gregory for evaluation regarding likely gallbladder disease. She presented with increasing pain in the right upper quadrant that she states is mostly postprandial. Intermittent nausea over the past few weeks. No jaundice. No fevers. Evaluation including an ultrasound and hepatobiliary scan showed changes consistent with biliary dyskinesia. Objective Vital signs: Temp Pulse Resp BP Pulse Ox 97.9 F 102 H 18 100/64 93 L 03/26/18 07:49 03/26/18 07:49 03/26/18 07:49 03/26/18 07:49 03/26/18 07:49 no acute distress - *Routine HEENT Exam Head: Present: normocephalic Eye: Present: EOMI, PERRL ENT: Present: mucous membranes dry - *Routine Neck Exam Present: supple - *Routine Respiratory Exam Present: CTA bilaterally - *Routine Cardiovascular Exam Present: RRR - *Routine Abdominal Exam Present: soft - *Routine Extremities Exam Absent: calf tenderness - *Routine Skin Exam Present: intact - *Routine Neurological Exam Present: alert, oriented X3, CN II-XII intact - Routine Psychiatric Exam Present: normal affect DS: Diagnosis - Discharge Diagnosis (1) Chest pain Status: Acute (2) Upper abdominal pain Status: Acute (3) Chronic cholecystitis Status: Acute Discharge Plan - Patient Discharge Instructions ACTIVITY: Continue current activity DIET: continue same diet - Follow up Plan Follow up with: Scotty Grimm MD [Staff Physician] - 2 weeks Disposition: Home, Self-Senior Living Medications: Home Medications Medication Instructions Recorded Confirmed Type Omeprazole [Omeprazole 40mg 40 mg PO DAILY 11/18/17 03/23/18 History Capsule] SUMAtriptan succinate [Sumatriptan 50 mg PO DIRECTED PRN 03/24/18 03/24/18 History Succinate] Prescriptions/Medication Reconciliation: Continue SUMAtriptan succinate [Sumatriptan Succinate] 50 mg PO DIRECTED PRN PRN Reason: Migraine Headache Discontinued Omeprazole [Omeprazole 40mg Capsule] 40 mg PO DAILY
== END 2018-03-26 11:15 | disposition home or self-care (01) ==
LOC: ER 12:55 → 2ND 12:55
PROVIDERS: ADMIT Emergency Medicine; ATTEND Emergency Medicine

== ENCOUNTER → 2019-08-17 08:53 | Outpatient (CLI) | payer OTHER, SELFPAY ==
[2019-08-17 14:54] LABS: Basophils % 0.5 % (0.1-2.0); Eosinophils # 0.1 K/mm3 (0.0-0.4); Eosinophils % 0.6 % (0.1-12.0); Hematocrit 40.3 % (37.0-47.0); Hemoglobin 13.1 g/dL (12.2-16.2); Lymphocytes # 2.3 K/mm3 (0.7-4.5); Lymphocytes % 26.3 % (10-50); Mean Corpuscular HGB Conc 32.6 g/dL (31.8-35.4); Mean Corpuscular Hemoglobin 27.8 pg (27.0-31.2); Mean Corpuscular Volume 85.4 fl (81-99); Mean Platelet Volume 7.9 fl (7.4-10.4); Monocytes # 0.5 K/mm3 (0.1-1.0); Monocytes % 5.8 % (1.7-9.3); Neutrophils # 5.9 K/mm3 (1.8-7.8); Neutrophils % 66.7 % (37.0-80.0); Platelet Count 304 K/mm3 (142-424); Red Blood Count 4.72 M/mm3 (4.20-5.40); Red Cell Distribution Width 12.9 % (11.5-17.5); White Blood Count 8.8 K/mm3 (4.8-10.8)
[2019-08-17 15:36] LABS: Alanine Aminotransferase 18 U/L (12-78); Albumin Level 3.4 gm/dL (3.4-5.0); Albumin/Globulin Ratio 1.1 (1.1-1.8); Alkaline Phosphatase 81 U/L (46-116); Anion Gap 11.4 mEq/L (5-15); Aspartate Amino Transferase 10 U/L (15-37); Bilirubin,Total 0.4 mg/dL (0.2-1.0); Blood Urea Nitrogen 10 mg/dL (7-18); Calcium 8.2 mg/dL (8.5-10.1); Carbon Dioxide 27 mmol/L (21.0-32.0); Chloride 104 mmol/L (98-107); Chol/HDL Ratio 4.7 (1-3.5); Cholesterol 225 mg/dL (140-200); Creatinine,Serum 0.85 mg/dL (0.55-1.02); Estimated Glomerular Filt Rate 74 ml/min (>60); GFR (African American) 90 ML/MIN (>60); Globulin 3.2 gm/dl (1.3-3.2); Glucose 79 mg/dL (74-106); HDL Cholesterol 48 mg/dL (29-89); LDL Cholesterol 157 mg/dL (0-130); Potassium 3.4 mmoL/L (3.5-5.1); Sodium 139 mmol/L (136-145); Total Protein,Serum 6.6 gm/dL (6.4-8.2); Triglycerides 100 mg/dL (30-200); VLDL Cholesterol 20 mg/dL (0-40)
== END ==
PROVIDERS: Visit Provider Nurse Practitioner Family
DX: Z00.00 Encounter for general adult medical examination without abnormal findings (principal); R30.0 Dysuria; K21.9 Gastro-esophageal reflux disease without esophagitis
CPT/HCPCS: 36415; 80053; 80061; 85025

== ENCOUNTER → 2019-10-03 09:42 | Outpatient (CLI) | payer OTHER, SELFPAY ==
--- NOTE | 2019-10-03 09:44 | NM_ITS ---
PROCEDURE: NM GASTRIC EMPTYING STUDY CLINICAL INDICATION: reflux on ppi/nausea COMPARISON: No exams were available for comparison TECHNIQUE: Dose: 0.54 mCi technetium sulfur colloid in the radial labeled meal FINDINGS: The 1/2 emptying time is 124 minutes which is prolonged. Normal is 60+/-30 minutes. Approximately 35 percent of the gastric contents had emptied at 90 minutes. Static images reviewed show no evidence of gastroesophageal reflux. IMPRESSION: Prolonged gastric emptying time consistent with gastroparesis Dictated by: Herman Quintana MD 10/04/2019 18:47 Electronically signed by Herman Quintana MD in [place] 10/04/2019 18:47
--- NOTE | 2019-10-03 10:41 | HMH.ITSHM ---
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 []OMEPRAZOLE ATORVASTATIN
== END ==
PROVIDERS: PCP Internal Medicine Adolescent Medicine; Visit Provider Surgery
DX: K21.9 Gastro-esophageal reflux disease without esophagitis (principal); K44.9 Diaphragmatic hernia without obstruction or gangrene
CPT/HCPCS: 78264; A9541

== ENCOUNTER → 2019-11-23 09:45 | Outpatient (CLI) | payer OTHER, SELFPAY ==
[2019-11-23 10:08] LABS: Basophils # 0.1 K/mm3 (0-0.2); Basophils % 0.7 % (0.1-2.0); Eosinophils # 0.1 K/mm3 (0.0-0.4); Eosinophils % 1.7 % (0.1-12.0); Hematocrit 41.4 % (37.0-47.0); Hemoglobin 13.4 g/dL (12.2-16.2); Lymphocytes # 2.5 K/mm3 (0.7-4.5); Mean Corpuscular HGB Conc 32.3 g/dL (31.8-35.4); Mean Corpuscular Hemoglobin 26.9 pg (27.0-31.2); Mean Corpuscular Volume 83.4 fl (81-99); Mean Platelet Volume 7.1 fl (7.4-10.4); Monocytes # 0.3 K/mm3 (0.1-1.0); Monocytes % 4.2 % (1.7-9.3); Neutrophils # 4.9 K/mm3 (1.8-7.8); Neutrophils % 62.4 % (37.0-80.0); Platelet Count 303 K/mm3 (142-424); Red Blood Count 4.97 M/mm3 (4.20-5.40); Red Cell Distribution Width 12.4 % (11.5-17.5); White Blood Count 7.9 K/mm3 (4.8-10.8)
[2019-11-23 11:47] LABS: Chloride 101 mmol/L (98-107); Potassium 4.2 mmoL/L (3.5-5.1); Sodium 136 mmol/L (136-145)
[2019-11-23 11:50] LABS: Alanine Aminotransferase 18 U/L (12-78); Albumin Level 4.1 g/dl (3.5-5.0); Albumin/Globulin Ratio 1.5 (1.1-1.8); Alkaline Phosphatase 78 U/L (38-126); Anion Gap 9.2 mEq/L (5-15); Aspartate Amino Transferase 26 U/L (14-36); Bilirubin,Total 0.4 mg/dl (0.2-1.3); Blood Urea Nitrogen 9 mg/dl (7-17); Carbon Dioxide 30 mmol/L (22.0-30.0); Estimated Glomerular Filt Rate 80 ml/min (>60); GFR (African American) 97 ML/MIN (>60); Globulin 2.8 g/dL (1.3-3.2); Total Protein,Serum 6.9 g/dl (6.3-8.2)
[2019-11-23 11:51] LABS: Glucose 83 mg/dl (74-100)
[2019-11-23 12:22] LABS: Thyroid Stimulating Hormone 3.11 uIU/mL (0.465-4.68)
== END ==
PROVIDERS: Visit Provider Internal Medicine Adolescent Medicine
DX: R53.83 Other fatigue (principal)
CPT/HCPCS: 36415; 80053; 84443; 85025

== ENCOUNTER → 2019-12-01 06:16 | Outpatient (CLI) | payer OTHER, SELFPAY ==
--- NOTE | 2019-12-01 | CA_ITS ---
APPROVED REPORT Exam: Exercise Treadmill Technologist: Mercedez Ellington, Ht: 5 ft 3 in Wt: 168 lbs BSA: 1.80 m2 HR: 63 bpm BP: 123/77 mmHg Rhythm: nsr,nssttw abnormalities inferiorly Medical History Medical History: Hyperlipidemia Medications: Omeprazole,,,,, Flonase,,,,, Lipitor,,,,, ZYRTEC,,,,, Cardiac Risk Factors: Hyperlipidemia, FHX of CAD Stress Test Details Test: Jovon HR Resting HR: 79 bpm Max Heart Rate (APMHR): 181 bpm Max HR Achieved: 165 bpm Target HR (85% APMHR): 153 bpm % of APMHR: 91 Recovery HR: 124 bpm BP Resting BP: 123.0/77.0 mmHg Max BP: 154.0/88.0 mmHg Recovery BP: 154.0/88.0 mmHg ECG Resting ECG: NSR,NSSTTW ABNORMALITIES INFERIORLY Clinical Reason for Termination: Dyspnea Exercise duration: 09:14 min Highest Stage Achieved: Exercise capacity: 10.1 METs Stress ECG Conclusion PATIENT EXERCISED 9MIN 14 SEC ON JOVON PROTOCOL WITH MAX HEART RATE 165 BPM WHICH IS 107% OF PM FOR AGE. METS = 10.1. NO CHEST PAIN. NO ARRHYTHMIAS/ECTOPY. <1.5MM ST SEGMENT CHANGES. EXACERBATION OF BASELINE ABNORMALITIES IN LEAD III. NEGATIVE STRESS PORTION. IMAGES PENDNG. Test Summary REST . . . . . . . Standing REST . . . . . . . Sitting REST 11:20 0.0 1.2 79 . 123/ 77 . . Stage 1 01:00 10.0 1.7 101 . . . . Stage 1 02:00 10.0 1.7 113 . . . . Stage 1 03:00 10.0 1.7 118 . . . . Stage 2 01:00 12.0 2.5 129 . 125/ 80 . . Stage 2 02:00 12.0 2.5 137 . 132/ 80 . . Stage 2 03:00 12.0 2.5 140 . 132/ 80 . . Stage 3 01:00 14.0 3.4 147 . . . . Stage 3 02:00 14.0 3.4 155 . . . . Stage 3 03:00 14.0 3.4 159 . . . . Stage 4 00:14 16.0 4.2 161 . . . Stop exercise at 09:14 RECOVERY 01:00 0.0 0.0 140 . . . . RECOVERY 02:00 0.0 0.0 115 . . . . RECOVERY 03:00 0.0 0.0 110 . 154/ 88 . . RECOVERY 04:00 0.0 0.0 111 . 137/ 83 . . RECOVERY 05:00 0.0 0.0 103 . 137/ 83 . . RECOVERY 06:00 0.0 0.0 106 . 137/ 83 . . RECOVERY 06:12 0.0 0.0 104 . 112/ 78 . . Electronically signed by : Hakeem Akers, 12/01/2019 11:01:40
--- NOTE | 2019-12-01 06:31 | NM_ITS ---
APPROVED REPORT Exam: Nuclear Stress Test Indication: Chest pain, SOB, Fatigue, Dizziness, High cholesterol, Family history Patient Location: Outpatient Stress Tech: Chrissy Rakel [place] Tech:Katie Mustafa, ARRT, RT (R)(N) Ht: 5 ft 3 in Wt: 168 lbs Bra Size: 38C HR: 63 bpm BP: 123/77 mmHg BSA: 1.80 m2 BMI: 29.7 History: Chest pain, SOB, Fatigue, Dizziness, High cholesterol, Family history Procedure: Patient exercised on Jovon protocol 9:14 minutes and sec, resting heart rate 63 bpm, resting blood pressure 123/77 mmHg, with exercise maximum heart rate achived was 165 bpm which is Greater than 85 % of the maximum predicted heart rate and blood pressure was 154/80 mmHg. Test was stopped due to SOA. Patient denied any complaint of chest pain. Patient has Good exercise capacity, achieved 10.1 METs of workload on treadmill, the blood pressure response to exercise was Adequate. Electrocardiogram Resting electrocardiogram showed sinus rhythm with nonspecific ST-T changes, with exercise there is less than 1.[address] segment depression noted from the baseline EKG. The EKG portion of the exercise Myoview is negative for ischemia. Cardiac Stress and Resting SPECT Images: Cardiac Stress and Resting SPECT images were obtained using technetium 99m Myoview 32.2 mCi stress and 10.89 mCi at rest. Gated SPECT with analysis of segmental wall motion and calculation of the ejection fraction also done. Cardiac stress and resting SPECT images show mild fixed defect in the anterior wall with normal contractility and the gated SPECT, and normal perfusion of the apex is likely secondary to soft tissue attenuation. No reversible ischemia seen. Computer derived ejection fraction is over 65% with no regional wall motion abnormality, right ventricle is normal size and contractility. Conclusion: 1. The EKG portion of the exercise Myoview is negative for ischemia, patient has good exercise capacity achieved 10.1 mets of workload on treadmill, the blood pressure response to exercise was adequate, there was no exercise-induced chest discomfort, test was stopped due to shortness of breath. 2. No scintigraphic evidence of reversible ischemia seen, computer derived ejection fraction is over 65% with no regional wall motion abnormality, right ventricle is normal size and contractility. 3. Likely normal exercise Myoview study. Electronically signed by : Hakeem Akers, 12/01/2019 11:06:04
== END ==
PROVIDERS: PCP Internal Medicine Adolescent Medicine; Visit Provider Internal Medicine Adolescent Medicine
DX: I20.9 Angina pectoris, unspecified (principal)
CPT/HCPCS: 78452; 93017; A9502

== ENCOUNTER → 2019-12-08 09:56 | Outpatient (CLI) | payer OTHER, SELFPAY | PROVIDERS: PCP Internal Medicine Adolescent Medicine; Visit Provider Internal Medicine Adolescent Medicine | DX: G47.33 Obstructive sleep apnea (adult) (pediatric) (principal); R06.83 Snoring; E66.9 Obesity, unspecified | CPT/HCPCS: 95806 ==

== ENCOUNTER 2019-12-27 11:28 | Observation (INO) | payer OTHER, SELFPAY ==
--- NOTE | 2019-12-27 11:38 | CT_ITS ---
PROCEDURE: CT ABDOMEN PELVIS WO/W CON CLINICAL INDICATION: abd pain abdominal pain radiating down to the umbilical region, nausea and vomiting COMPARISON: ABDPELW CT abdomen pelvis w con from 06/10/2018 TECHNIQUE: IV Contrast: 75ML OPTIRAY 350 Oral Contrast 20ml Gastroview Axial images obtained with sagittal and coronal reformats. All CT scans at the facility use one or more dose reduction, viz: automated exposure control, ma/kV adjustment per patient size (including targeted exams where dose is matched to indication, i.e. head), or iterative reconstruction technique. FINDINGS: LOWER THORAX: No acute finding ABDOMEN & PELVIS: Status post cholecystectomy. Small hiatal hernia. The liver, spleen, adrenal glands, pancreas, and kidneys have an unremarkable appearance. Unenhanced images show no evidence of nephrolithiasis. There is a small umbilical hernia containing fat. No evidence of appendicitis or diverticulitis. There is a mild amount of fluid in the pelvis with ring-like enhancement involving the right ovary having a somewhat crenulated appearance and may be related to a recently ruptured ovarian cyst. A surgical clip is present in the cul-de-sac area. No acute bony findings. IMPRESSION: Ring-like enhancement in the right adnexa at 1.9 cm having a somewhat crenulated appearance with associated fluid in the cul-de-sac which may be seen with ruptured ovarian cyst. No other acute findings. Dictated by: Herman Quintana MD 12/28/2019 07:27 Electronically signed by Herman Quintana MD in [place] 12/28/2019 07:27
--- NOTE | 2019-12-27 11:41 | P.CONPHA_ITS ---
[facility] Pharmacy VTE Monitoring - Patient Demographics Admission date: 12/27/19 Report Date: 12/27/19 Time: 11:42 Allergies/Adverse Reactions: Patient Allergies Penicillins Allergy (Verified 09/14/19 10:09) - Prophylaxis VTE Prophylaxis Ordered?: Yes Types of VTE Prophylaxis: TEDS Knee High Location of Applied Device: Bilateral Lower Extremeties - VTE Diagnosis Confirmed Treatment or plan recommended: Continue Current Treatment
[2019-12-27 12:17] VITALS: BP 103/70; PULSE 76; RESP 18; TEMP 36.6; O2SAT 94; BMI 29.9
--- NOTE | 2019-12-27 12:19 | HMH.HP ---
*Admission Date: 12/27/19 *Chief complaint: sudden onset abd pain *History of present illness: Mrs Thomason is presenting to the office today due to acute onset epigastric pain with radiation to her left flank and back. She reports that this pain woke her from her sleep and that since onset she has had persistent nausea and 3 episodes of vomiting. She has also had chills with diaphoresis. she thinks that the pain is progressively worsening with associated abdominal distension. This has never happened to her before. She had a CCY 1.5 years ago and denies any alcohol use. She denies fevers, CP, SOB, history of gastric ulcers. [facility] History I have reviewed the patient's past medical history: Yes Medical History: Reports:: Gastroesophageal Reflux Disease(GERD), Hyperlipidemia Denies:: Cancer, Diabetes Mellitus Type 1, Diabetes Mellitus Type 2, Internal Pacemaker, MRSA, Seizures *Have you ever received a pneumonia vaccine?: No *Have you received a flu vaccine this season?: No Other Medical History: Reports: Anemia, Other. Denies: Blood Transfusion Reaction Other Surgeries: Yes: Cholecystectomy, , EGD, Hysterectomy-Partial, Tubal Ligation, Other. No: Pacemaker Amputation: No Fractures: No - *Social History Educational Level: Completed High School Smoking Status: Never smoker Tobacco Type: cigarettes Alcohol Intake: never Substance Use Type: denies use *Occupational Status:: employed Housing: house Household Members: children *Travel in the last 8 weeks: None Family Hx:: Cancer, Coronary Artery Disease, Diabetes, Heart Attack, Hyperlipidemia, Hypertension, Thyroid Disorder Review of Systems - Review of Systems Review of systems:: pertinent systems reviewed and negative unless documented below Meds Home Medications Medication Instructions Recorded Confirmed Type Atorvastatin Calcium [Lipitor 40mg 20 mg PO DAILY 09/08/19 12/27/19 History Tablet] Omeprazole [Omeprazole 40mg 40 mg PO BID 09/08/19 12/27/19 History Capsule] Allergies Allergy/AdvReac Type Severity Reaction Status Date / Time Penicillins Allergy Verified 09/14/19 10:09 Exam Vital signs and Labs for Last 24 Hours: Temp Pulse Resp BP Pulse Ox 97.8 F 76 18 103/70 L 94 L 12/27/19 12:17 12/27/19 12:12/27/19 12:12/27/19 12:12/27/19 12:17 I & O for Last 24 hours: Intake & Output 12/25/19 12/26/19 12/27/19 12/28/19 11:59 11:59 11:59 11:59 Weight 169 lb 2 oz - *Routine HEENT Exam Head: Present: normocephalic Eye: Present: EOMI, PERRL ENT: Present: mucous membranes moist - *Routine Neck Exam Present: supple. Absent: lymphadenopathy - *Routine Respiratory Exam Present: CTA bilaterally - *Routine Cardiovascular Exam Present: RRR - *Routine Abdominal Exam Present: tenderness (in left upper flank), rebound, guarding. Absent: Abernathy Sharif's sign, [place]'s sign - *Routine Extremities Exam Absent: cyanosis, clubbing, edema - *Routine Skin Exam Present: warm. Absent: rash - *Routine Neurological Exam Present: alert, oriented X3 Assessment and Plan (1) Abdominal pain Current visit: No Status: Acute Category: Medical Code(s): R10.9 - Unspecified abdominal pain Given severe tenderness, rebound and clinical picture concerning for acute pancreatitis versus other structural/metabolic internal abdominal problem. Admit to [facility] for IV fluids, pain control, CT scan of abdomen and pelvis.
--- NOTE | 2019-12-27 12:20 | ECG_ITS ---
APPROVED REPORT Exam: Resting ECG HR:78 bpm ECG Measurements Heart Rate 78 AXES WA 160 P 33 QRSd 78 QRS 71 QT 386 T 25 QTc 440 <Conclusion> Normal sinus rhythm Normal ECG Electronically signed by : David Stout, 12/28/2019 08:27:07
[2019-12-27 12:43] LABS: Basophils # 0.1 K/mm3 (0-0.2); Basophils % 0.5 % (0.1-2.0); Eosinophils # 0.1 K/mm3 (0.0-0.4); Eosinophils % 1.1 % (0.1-12.0); Hematocrit 42.5 % (37.0-47.0); Hemoglobin 13.9 g/dL (12.2-16.2); Lymphocytes # 2.3 K/mm3 (0.7-4.5); Lymphocytes % 23.3 % (10-50); Mean Corpuscular HGB Conc 32.6 g/dL (31.8-35.4); Mean Corpuscular Hemoglobin 26.7 pg (27.0-31.2); Mean Corpuscular Volume 81.6 fl (81-99); Mean Platelet Volume 7.3 fl (7.4-10.4); Monocytes # 0.7 K/mm3 (0.1-1.0); Monocytes % 6.7 % (1.7-9.3); Neutrophils # 6.8 K/mm3 (1.8-7.8); Neutrophils % 68.4 % (37.0-80.0); Platelet Count 302 K/mm3 (142-424); Red Cell Distribution Width 12.8 % (11.5-17.5); White Blood Count 9.9 K/mm3 (4.8-10.8)
[2019-12-27 12:47] LABS: Chloride 103 mmol/L (98-107); Potassium 4.1 mmoL/L (3.5-5.1); Sodium 136 mmol/L (136-145)
[2019-12-27 12:49] LABS: Amylase 89 U/L (30-110); Blood Urea Nitrogen 8 mg/dl (7-17); Creatinine Clearance Estimated 131 mL/min (50-200); Estimated Glomerular Filt Rate 93 ml/min (>60); GFR (African American) 113 ML/MIN (>60)
[2019-12-27 12:50] LABS: Alanine Aminotransferase 15 U/L (12-78); Albumin Level 4.3 g/dl (3.5-5.0); Albumin/Globulin Ratio 1.3 (1.1-1.8); Alkaline Phosphatase 90 U/L (38-126); Anion Gap 11.1 mEq/L (5-15); Aspartate Amino Transferase 22 U/L (14-36); Bilirubin,Total 0.5 mg/dl (0.2-1.3); Calcium 9.1 mg/dl (8.4-10.2); Carbon Dioxide 26 mmol/L (22.0-30.0); Globulin 3.3 g/dL (1.3-3.2); Glucose 104 mg/dl (74-100); Lipase 61 U/L (23-300); Total Protein,Serum 7.6 g/dl (6.3-8.2)
[2019-12-27 12:51] LABS: Lactic Acid 1.1 mmol/L (0.7-2.1)
--- NOTE | 2019-12-27 13:20 | HMH.PHAINT ---
MEDICATION RECONCILIATION COMPLETED ON PATIENT USING EXTERNAL FILL HISTORY FROM PHARMACY. -ELIZABETH BAY, BONITAD
[2019-12-27 15:18] VITALS: BP 96/68; PULSE 74; RESP 18; TEMP 36.7; O2SAT 99
[2019-12-27 16:23] LABS: Microscopic, Urine URINE MICROSCOPIC (MICROSCOPIC)
[2019-12-27 16:29] LABS: Appearance,Urine CLEAR (Clear); Bilirubin,Urine Negative (Negative); Blood, Urine Negative (Negative); Color,Urine YELLOW (Yellow); Glucose,Urine (UA) Negative (Negative); Ketones,Urine Negative (Negative); Leukocyte Esterase,Urine Negative (Negative); Nitrate,Urine Negative (Negative); Protein,Urine Negative (Negative); Urobilinogen,Urine 0.2 EU/dl (0.2)
[2019-12-27 16:36] LABS: WBC,Urine Occasional #/hpf (0-3)
[2019-12-27 16:37] LABS: Bacteria,Urine Trace /lpf
--- NOTE | 2019-12-27 19:13 | INFXCTL.NOTE ---
report given to ashley
--- NOTE | 2019-12-27 19:26 | PC.NURSE ---
report given to ashley
[2019-12-27 19:43] VITALS: BP 86/50; PULSE 58; RESP 20; TEMP 36.6; O2SAT 95
--- NOTE | 2019-12-27 20:16 | PC.NURSE ---
PT is resting currently. Has required pain med x one this shift per oct, and had one episode of nausea. Did give prn phenegran and this had aided with that, pt has slept post administration. VSS. Tenderness noted upon palpation to LLQ. BS X 4. One family member at bedside. Refused teds. CB in reach. VSS.
[2019-12-27 20:42] VITALS: BP 94/64
[2019-12-28 03:47] VITALS: BP 86/61; PULSE 68; RESP 20; TEMP 36.9; O2SAT 96
--- NOTE | 2019-12-28 03:55 | PC.NURSE ---
A&OX4. PT TOLERATING RA WELL THIS SHIFT. PT HAS C/O L SIDED ABD PAIN X1 THIS SHIFT. PT DID NOT WANT TO TAKE ANYTHING, BUT LOOKED LIKE SHE WAS IN QUITE A BIT OF PAIN. SO PT DECIDED TO TAKE TYLENOL. ON REASSESSMENT, PT RESTING IN BED. PT HAS HAD NO C/O NA/VO/DI THIS SHIFT. PT RESTING IN BED MAJORITY OF SHIFT, FAMILY AT BEDSIDE. PT TOLERATING NPO DIET WELL. NO OTHER COMPLAINTS THUS FAR, VSS WILL CONTINUE TO MONITOR.
--- NOTE | 2019-12-28 07:41 | HMH.DCSUM ---
General - General Admission date:: 12/27/19 Discharge date: 12/28/19 HPI HPI: Mrs Thomason is presenting to the office today due to acute onset epigastric pain with radiation to her left flank and back. She reports that this pain woke her from her sleep and that since onset she has had persistent nausea and 3 episodes of vomiting. She has also had chills with diaphoresis. she thinks that the pain is progressively worsening with associated abdominal distension. This has never happened to her before. She had a CCY 1.5 years ago and denies any alcohol use. She denies fevers, CP, SOB, history of gastric ulcers. Hospital Course Hospital Course: Patient was admitted to hospital. Pancreatic enzymes, metabolic testing and blood counts were normal. Patient was given IV fluids and morphine which helped her pain somewhat. CT scan of abdomen and pelvis was done showing normal pancreatic, renal, intestinal and bony structures but did have evidence of a recently ruptured left ovarian cyst which clinically fits with her picture. Patient feels better this morning. She will be discharged after receiving a Toradol injection with a p.o. prescription for Toradol, Phenergan and follow-up in my office in 2 days. Objective Vital signs: Temp Pulse Resp BP Pulse Ox 98.4 F 68 20 86/61 L 96 12/28/19 03:47 12/28/19 03:47 12/28/19 03:47 12/28/19 03:47 12/28/19 03:47 no acute distress - *Routine HEENT Exam Head: Present: normocephalic Eye: Present: EOMI, PERRL ENT: Present: mucous membranes moist - *Routine Neck Exam Present: supple - *Routine Respiratory Exam Present: CTA bilaterally - *Routine Cardiovascular Exam Present: RRR - *Routine Abdominal Exam Present: soft, normoactive bowel sounds. Absent: tenderness - *Routine Extremities Exam Absent: cyanosis, clubbing, edema - *Routine Skin Exam Present: warm. Absent: rash - Detailed Eye Exam Eyelids: Bilateral normal inspection Results Labs on day of discharge: Labs from last 24 hours 12/27/19 12/27/19 12/27/19 16:15 12:10 12:10 WBC RBC Hgb Hct MCV MCH MCHC RDW Plt Count MPV Neut % (Auto) Lymph % (Auto) [place] % (Auto) Eos % (Auto) Baso % (Auto) Neut # (Auto) Lymph # (Auto) [place] # (Auto) Eos # (Auto) Baso # (Auto) Sodium Potassium Chloride Carbon Dioxide Anion Gap BUN Creatinine Estimated Creat Clear Estimated GFR Est GFR ( Amer) Glucose Lactate 1.1 Calcium Total Bilirubin AST ALT Alkaline Phosphatase Total Protein Albumin Globulin Albumin/Globulin Ratio Amylase Lipase 61 Urine Color Yellow Urine Appearance Clear Urine pH 6.0 Ur Specific [place] 1.010 Urine Protein Negative Urine Glucose (UA) Negative Urine Ketones Negative Urine Blood Negative Urine Nitrate Negative Urine Bilirubin Negative Urine Urobilinogen 0.2 Ur Leukocyte Esterase Negative Urine WBC Occasional Ur Squamous Epith Cells 3-5 Urine Bacteria Trace 12/27/19 12/27/19 12:10 12:10 WBC 9.9 RBC 5.20 Hgb 13.9 Hct 42.5 MCV 81.6 MCH 26.7 L MCHC 32.6 RDW 12.8 Plt Count 302 MPV 7.3 L Neut % (Auto) 68.4 Lymph % (Auto) 23.3 [place] % (Auto) 6.7 Eos % (Auto) 1.1 Baso % (Auto) 0.5 Neut # (Auto) 6.8 Lymph # (Auto) 2.3 [place] # (Auto) 0.7 Eos # (Auto) 0.1 Baso # (Auto) 0.1 Sodium 136 Potassium 4.1 Chloride 103 Carbon Dioxide 26 Anion Gap 11.1 BUN 8 Creatinine 0.70 Estimated Creat Clear 131 Estimated GFR 93 Est GFR ( Amer) 113 Glucose 104 H Lactate Calcium 9.1 Total Bilirubin 0.5 AST 22 ALT 15 Alkaline Phosphatase 90 Total Protein 7.6 Albumin 4.3 Globulin 3.3 H Albumin/Globulin Ratio 1.3 Amylase 89 Lipase Urine Color Urine Appearance Urine pH Ur Specific
[2019-12-28 07:43] VITALS: BP 87/52; PULSE 67; RESP 16; TEMP 36.9; O2SAT 96
== END 2019-12-28 08:25 | disposition home or self-care (01) ==
PROVIDERS: Admitting Provider Internal Medicine Adolescent Medicine; PCP Internal Medicine Adolescent Medicine; Visit Provider Internal Medicine Adolescent Medicine
DX: R10.9 Unspecified abdominal pain (principal); N83.201 Unspecified ovarian cyst, right side
CPT/HCPCS: 36415; 74178; 80053; 81001; 82150; 83605; 83690; 85025; 93005; G0378; Q9967

== ENCOUNTER → 2020-03-15 16:09 | Outpatient (CLI) | payer OTHER, SELFPAY ==
[2020-03-15 16:27] LABS: Basophils # 0.1 K/mm3 (0-0.2); Basophils % 0.6 % (0.1-2.0); Eosinophils # 0.4 K/mm3 (0.0-0.4); Eosinophils % 3.1 % (0.1-12.0); Hematocrit 45.6 % (37.0-47.0); Hemoglobin 14.9 g/dL (12.2-16.2); Lymphocytes # 2.8 K/mm3 (0.7-4.5); Lymphocytes % 24.2 % (10-50); Mean Corpuscular HGB Conc 32.7 g/dL (31.8-35.4); Mean Corpuscular Hemoglobin 28.1 pg (27.0-31.2); Mean Corpuscular Volume 85.7 fl (81-99); Mean Platelet Volume 6.7 fl (7.4-10.4); Monocytes # 0.6 K/mm3 (0.1-1.0); Neutrophils # 7.6 K/mm3 (1.8-7.8); Platelet Count 317 K/mm3 (142-424); Red Blood Count 5.31 M/mm3 (4.20-5.40); Red Cell Distribution Width 13.2 % (11.5-17.5); White Blood Count 11.4 K/mm3 (4.8-10.8)
[2020-03-15 16:54] LABS: Erythrocyte Sedimentation Rate 15 mm/hr (0-20)
[2020-03-15 20:20] LABS: Chloride 100 mmol/L (98-107); Sodium 138 mmol/L (136-145)
[2020-03-15 20:21] LABS: Potassium 4.1 mmoL/L (3.5-5.1)
[2020-03-15 20:23] LABS: Alanine Aminotransferase 19 U/L (12-78); Albumin/Globulin Ratio 1.3 (1.1-1.8); Alkaline Phosphatase 73 U/L (38-126); Anion Gap 14.1 mEq/L (5-15); Aspartate Amino Transferase 25 U/L (14-36); Bilirubin,Total 0.4 mg/dl (0.2-1.3); Blood Urea Nitrogen 8 mg/dl (7-17); Carbon Dioxide 28 mmol/L (22.0-30.0); Estimated Glomerular Filt Rate 70 ml/min (>60); GFR (African American) 84 ML/MIN (>60)
[2020-03-15 20:24] LABS: Calcium 9.1 mg/dl (8.4-10.2); Glucose 104 mg/dl (74-100)
== END ==
PROVIDERS: Visit Provider Internal Medicine Adolescent Medicine
DX: L28.2 Other prurigo (principal)
CPT/HCPCS: 36415; 80053; 85025; 85651

== ENCOUNTER → 2020-08-28 11:39 | Outpatient (CLI) | payer OTHER, SELFPAY ==
[2020-08-29 08:34] LABS: Covid-19 Nasal PCR Sendout P&C NEGATIVE
== END ==
PROVIDERS: PCP Internal Medicine Adolescent Medicine; Visit Provider Internal Medicine Adolescent Medicine
DX: Z20.822 Contact with and (suspected) exposure to COVID-19 (principal); R05 Cough
CPT/HCPCS: U0004

== ENCOUNTER → 2021-01-24 13:48 | Outpatient (CLI) | payer OTHER, SELFPAY ==
[2021-01-24 13:59] LABS: Basophils # 0.1 K/mm3 (0-0.2); Basophils % 0.6 % (0.1-2.0); Eosinophils # 0.1 K/mm3 (0.0-0.4); Eosinophils % 0.9 % (0.1-12.0); Hematocrit 43.9 % (37.0-47.0); Hemoglobin 14.1 g/dL (12.2-16.2); Lymphocytes # 2.3 K/mm3 (0.7-4.5); Lymphocytes % 27.9 % (10-50); Mean Corpuscular HGB Conc 32.1 g/dL (31.8-35.4); Mean Corpuscular Hemoglobin 27.4 pg (27.0-31.2); Mean Corpuscular Volume 85.2 fl (81-99); Monocytes # 0.5 K/mm3 (0.1-1.0); Monocytes % 6.4 % (1.7-9.3); Neutrophils # 5.3 K/mm3 (1.8-7.8); Neutrophils % 64.3 % (37.0-80.0); Platelet Count 305 K/mm3 (142-424); Red Blood Count 5.15 M/mm3 (4.20-5.40); Red Cell Distribution Width 12.6 % (11.5-17.5); White Blood Count 8.2 K/mm3 (4.8-10.8)
[2021-01-24 14:05] LABS: Alanine Aminotransferase 17 U/L (12-78); Albumin Level 4.3 g/dl (3.5-5.0); Albumin/Globulin Ratio 1.4 (1.1-1.8); Alkaline Phosphatase 77 U/L (38-126); Anion Gap 10.8 mEq/L (5-15); Aspartate Amino Transferase 24 U/L (14-36); Bilirubin,Total 0.6 mg/dl (0.2-1.3); Blood Urea Nitrogen 7 mg/dl (7-17); Calcium 8.9 mg/dl (8.4-10.2); Carbon Dioxide 28 mmol/L (22.0-30.0); Chloride 104 mmol/L (98-107); Chol/HDL Ratio 5.8 (1-3.5); Cholesterol 221 mg/dl (140-200); Estimated Glomerular Filt Rate 79 ml/min (>60); GFR (African American) 96 ML/MIN (>60); Glucose 90 mg/dl (74-100); HDL Cholesterol 38 mg/dl (40-60); Potassium 3.8 mmoL/L (3.5-5.1); Sodium 139 mmol/L (136-145); Total Protein,Serum 7.3 g/dl (6.3-8.2); Triglycerides 202 mg/dl (30-150); VLDL Cholesterol 40 mg/dL (0-40)
[2021-01-24 14:16] LABS: C-Reactive Protein 1.4 mg/L (0-4); Direct LDL Cholesterol 125.22 mg/dL (100-129)
[2021-01-24 14:21] LABS: Free T4 (Free Thyroxine) 0.78 ng/dl (0.78-2.19)
[2021-01-24 14:22] LABS: 25-OH Vitamin D, Total 21.9 ng/mL (30-100)
[2021-01-24 14:35] LABS: Thyroid Stimulating Hormone 3.85 uIU/mL (0.465-4.68)
[2021-01-24 14:41] LABS: Erythrocyte Sedimentation Rate 13 mm/hr (0-20)
[2021-01-26 04:09] LABS: FSH 7.3 mIU/mL (.); LH 4.1 mIU/mL (.)
[2021-01-26 10:11] LABS: Progesterone 0.4 ng/mL (.)
[2021-02-03 00:05] LABS: Estrogen 137 pg/mL (.)
== END ==
PROVIDERS: Visit Provider Physician Assistant
DX: R51.9 Headache, unspecified (principal); R61 Generalized hyperhidrosis; E55.9 Vitamin D deficiency, unspecified
CPT/HCPCS: 80053; 80061; 82306; 82672; 83001; 83002; 84144; 84439; 84443; 85025; 85651; 86140

== ENCOUNTER → 2021-02-05 12:55 | Outpatient (CLI) | payer OTHER, SELFPAY | PROVIDERS: PCP Physician Assistant; Visit Provider Physician Assistant | DX: G47.33 Obstructive sleep apnea (adult) (pediatric) (principal); R51.9 Headache, unspecified; R40.0 Somnolence | CPT/HCPCS: 95806 ==

== ENCOUNTER → 2021-02-08 07:43 | Outpatient (CLI) | payer OTHER, SELFPAY ==
--- NOTE | 2021-02-08 07:44 | CA_ITS ---
APPROVED REPORT EXAM: Comprehensive 2D, Doppler, and color-flow Echocardiogram Intake Rn: Susana Morales RT(R) Ht: 5 ft 3 in Wt: 177lbs BSA: 1.84 BP: 118/72 mmHg Indications: murmur, migraines, palpitations, SOB, GERD, dizziness, hyperlipidemia Echo Enhancing Agent Indication: Rule Out Septal Defect Agent(s) / Amount(s) Used: Agitated Saline 20 cc 2D Dimensions LVOT 2.09 cm (M/F) 1.5-2.5 LVEF (Aguilar's) 51.00 % F: 54 - 74 LV Volume 84.90 mL F: 46 - 106 LV Volume Index 46.39 mL/m2 F: 29 - 61 LA Volume 28.10 mL LA Volume Index 15.35 mL/m2 (M/F) 16-34 M-Mode Dimensions RVDd 2.70 cm (0.9-2.6) LA Diam 3.43 cm (1.9-4.0) LVDd 5.14 cm (3.5-5.7) Ao Diam 2.72 cm (2.0-3.7) LVDs 3.54 cm (3.5-5.7) IVSd 0.77 cm (0.6-1.1) PWd 0.63 cm (0.6-1.1) EF (Teich) 58.50% FS 31.10% EDV (Teich) 126.10 mL ESV (Teich) 52.30 mL LV Diastology E Decel Time 183.00 (160-240 msec) E/A Ratio 1.1 MED E' 8.80 (< 7 cm/sec) E'/MED E' Ratio 9.66 (>14) LAT E' 15.80 (<10 cm/sec) E/LAT E' Ratio 5.38 (>14) Mitral Valve MV E Max Bandar. 85.00 (40-130 cm/s) MV A Velocity 78.00 (40-130 cm/s) E/A Ratio 1.09 MV Decel. Time 183.00 (160-240 ms) MV PHT 54.00 ms Left Ventricle Left atrium is normal size, left ventricle is normal size, there is no concentric left ventricular hypertrophy, visually estimated ejection fraction 55% with no regional wall motion abnormality. Diastolic parameters are within normal range. Right Ventricle Right atrium and right ventricle are normal size and contractility. Atria Intra-atrial septum is intact, agitated saline contrast study identifies presence of patent foramen ovale with [id number] shunt. Aortic Valve Aortic valve is grossly normal, there is no aortic stenosis or aortic insufficiency. Mitral Valve Mitral valve grossly normal, there is trace mitral regurgitation. Tricuspid Valve Tricuspid grossly normal, there is trace tricuspid regurgitation, tricuspid regurgitation jet velocity is inadequate for calculation of the right ventricular systolic pressure. Pulmonic Valve Pulmonic valve is poorly visualized. Great Vessels Aortic root is normal size. Pericardium No significant pericardial effusion noted. Conclusion 1. Normal left ventricular size, preserved left ventricular systolic function, visually estimated ejection fraction 55% with no regional wall motion abnormality, diastolic parameters are within normal range. 2. Patent foramen ovale with [id number] shunt. 3. No significant pericardial effusion noted. Electronically signed by : Hakeem Akers, 02/08/2021 10:27:02
--- NOTE | 2021-02-08 08:51 | MM_ITS ---
PROCEDURE INFORMATION: Exam: MG Screening 3D Mammography Exam date and time: 02/08/2021 8:51 AM Age: 40 years old Clinical indication: Breast cancer screening TECHNIQUE: Imaging protocol: Screening tomosynthesis and 2D mammography including computer-aided detection (CAD) when performed. COMPARISON: No relevant prior studies available. FINDINGS: MAMMOGRAPHY: Breast composition: The breast tissue is heterogeneously dense, which may obscure small masses. Mass: None. Architectural distortion: None. Calcifications: No suspicious calcifications. Asymmetric density: None. Skin thickening: None. Axillary adenopathy: None. IMPRESSION: No mammographic evidence of malignancy. Annual screening is recommended unless otherwise clinically indicated. ASSESSMENT: BI-RADS Category 1: Negative
== END ==
PROVIDERS: PCP Physician Assistant; Visit Provider Physician Assistant
DX: Z12.31 Encounter for screening mammogram for malignant neoplasm of breast (principal); R01.1 Cardiac murmur, unspecified
CPT/HCPCS: 77063; 77067; 93306

== ENCOUNTER → 2021-02-11 08:18 | Outpatient (CLI) | payer OTHER, SELFPAY ==
--- NOTE | 2021-02-11 08:18 | CT_ITS ---
PROCEDURE: CT HEAD/BRAIN WO CON CLINICAL INDICATION: new onset H/A, anisocoria, vertigo Six COMPARISON: No exams were available for comparison TECHNIQUE: Axial images obtained. All CT scans at the facility use one or more dose reduction, viz: automated exposure control, ma/kV adjustment per patient size (including targeted exams where dose is matched to indication, i.e. head), or iterative reconstruction technique. FINDINGS: No midline shift, mass effect, intracranial hemorrhage, hydrocephalus, or extra-axial fluid collection is evident. The calvarium has an unremarkable appearance. No mastoid effusion. No sinus air-fluid level. IMPRESSION: No acute intracranial finding Dictated by: Herman Quintana MD 02/11/2021 10:11 Herman Quintana MD in [facility] 02/11/2021 10:11
--- NOTE | 2021-02-11 08:18 | CT_ITS ---
Procedure: CT ANGIO NECK CLINICAL HISTORY: neck pain, headache, anisocoria Severe headaches Dizziness Rt sided vision disturbance No prior COMPARISON: CT CT ANGIO HEAD from 02/11/2021 TECHNIQUE: IV Contrast: 100ml Isovue 370 Axial images obtained with sagittal and coronal reformats. All CT scans at the facility use one or more dose reduction, viz: automated exposure control, ma/kV adjustment per patient size (including targeted exams where dose is matched to indication, i.e. head), or iterative reconstruction technique. FINDINGS: CTA neck: There is bovine origin of the right brachiocephalic and left common carotid artery. The aortic arch has an otherwise unremarkable appearance. The great vessels are unremarkable. The common and internal carotid arteries are unremarkable. No stenotic lesions ulcerations or dissections evident. The vertebrals have an unremarkable appearance. No stenosis aneurysm or dissection evident. CTA head: No aneurysm, AVM, dissection, or major intracranial occlusive process apparent. No enhancing lesions are evident. No midline shift, mass effect, or hydrocephalus evident. IMPRESSION: Negative CTA neck and head. Dictated by: Herman Quintana MD 02/12/2021 08:11 Herman Quintana MD in [facility] 02/12/2021 08:11
--- NOTE | 2021-02-11 08:18 | CT_ITS ---
Procedure: CT ANGIO HEAD CLINICAL HISTORY: neck pain, headache, anisocoria Severe headache Dizziness Rt sided vision disturbance No prior COMPARISON: CT CT HEAD/BRAIN WO CON from 02/11/2021 TECHNIQUE: IV Contrast: 100ml Isovue 370 Axial images obtained with sagittal and coronal reformats. All CT scans at the facility use one or more dose reduction, viz: automated exposure control, ma/kV adjustment per patient size (including targeted exams where dose is matched to indication, i.e. head), or iterative reconstruction technique. FINDINGS: CTA neck: There is bovine origin of the right brachiocephalic and left common carotid artery. The aortic arch has an otherwise unremarkable appearance. The great vessels are unremarkable. The common and internal carotid arteries are unremarkable. No stenotic lesions ulcerations or dissections evident. The vertebrals have an unremarkable appearance. No stenosis aneurysm or dissection evident. CTA head: No aneurysm, AVM, dissection, or major intracranial occlusive process apparent. No enhancing lesions are evident. No midline shift, mass effect, or hydrocephalus evident. IMPRESSION: Negative CTA neck and head. Dictated by: Herman Quintana MD 02/11/2021 20:26 Herman Quintana MD in [facility] 02/12/2021 08:13
== END ==
PROVIDERS: PCP Physician Assistant; Visit Provider Physician Assistant
DX: R51.9 Headache, unspecified (principal)
CPT/HCPCS: 70450; 70496; 70498; Q9967

== ENCOUNTER 2021-03-08 12:24 | Emergency (ER) | payer OTHER, SELFPAY ==
[2021-03-08 12:25] VITALS: BP 120/95; PULSE 85; RESP 18; TEMP 36.3; O2SAT 99; BMI 31.3
--- NOTE | 2021-03-08 12:27 | HMH.EDGENADL ---
ED Disposition Clinical Impression: Abdominal pain Qualifiers: Abdominal location: left upper quadrant Qualified Code(s): R10.12 - Left upper quadrant pain GERD (gastroesophageal reflux disease) Qualifiers: Esophagitis presence: esophagitis presence not specified Qualified Code(s): K21.9 - Gastro-esophageal reflux disease without esophagitis Disposition: Home, Self-Care Condition on Discharge: Good Instructions: DI for Acute Abdominal Pain Referrals: Main Das MD [Primary Care Provider] - 3 days Time of Disposition: 15:05 - Critical Care Critical Care Time: No Attestation: On , the high probability of a clinically significant, sudden or life threatening deterioration of the following system(s) required my full and direct attention, intervention and personal management. The time I documented below is in addition to time spent performing reported procedures but includes the following listed in this critical care notation. Medical Decision Making - Medical Records Medical records reviewed: Yes: I reviewed the patient's medical records. - Jaxson Inquiry Pt receiving controlled substance: No Vital Signs: 03/08/21 12:25 Temperature 97.3 F L Temperature Source Oral Pulse Rate [Right] 85 Respiratory Rate 18 Blood Pressure [Right Arm] 120/95 H Blood Pressure Mean [Right Arm] 103 02 Sat by Pulse Oximetry 99 Oxygen Delivery Method Room Air - Lab Data Lab results reviewed: Yes: I reviewed the patient's lab results. Lab Results 03/08/21 12:27: Urine Color Yellow, Urine Appearance Clear, Urine pH 6.0, Ur Specific [place] 1.020, Urine Protein Negative, Urine Glucose (UA) Negative, Urine Ketones Negative, Urine Blood Negative, Urine Nitrate Negative, Urine Bilirubin Negative, Urine Urobilinogen 0.2, Ur Leukocyte Esterase Trace, Urine RBC None, Urine WBC Occasional, Ur Squamous Epith Cells 3-5, Urine Bacteria None 03/08/21 12:48: WBC 12.3 H, RBC 5.21, Hgb 14.5, Hct 42.6, MCV 81.7, MCH 27.8, MCHC 34.1, RDW 13.7, Plt Count 317, MPV 7.2 L, Neut % (Auto) 68.2, Lymph % (Auto) 25.2, [place] % (Auto) 4.3, Eos % (Auto) 0.5, Baso % (Auto) 1.7, Neut # (Auto) 8.4 H, Lymph # (Auto) 3.1, [place] # (Auto) 0.5, Eos # (Auto) 0.1, Baso # (Auto) 0.2 03/08/21 12:48: Sodium 139, Potassium 3.5, Chloride 103, Carbon Dioxide 29, Anion Gap 10.5, BUN 13, Creatinine 0.80, Estimated Creat Clear 118, Estimated GFR 79, Est GFR ( Amer) 96, Glucose 91, Calcium 8.8, Total Bilirubin 0.4, AST 24, ALT 17, Alkaline Phosphatase 87, Total Protein 7.5, Albumin 4.2, Globulin 3.3 H, Albumin/Globulin Ratio 1.3, Lipase 81 03/08/21 12:59: Urine HCG, Qual Negative Result diagrams: 03/08/21 12:48 03/08/21 12:48 Orders (Tests/Meds): ED MEDICATIONS Discontinued Medications Generic Name Dose Route Start Last Admin Trade Name Freq PRN Reason Stop Dose Admin Belladonna Alkaloids 60 ml 03/08/21 15:03 03/08/21 15:05 Gi Cocktail 60ml Udc PO 03/08/21 15:04 60 ml ONCE ONE Administration Iopamidol 100 ml 03/08/21 14:02 03/08/21 14:05 Iopamidol-370 (76%);100ml Bottle IV 03/08/21 14:03 100 ml ONCE ONE Administration Sodium Chloride 10 ml 03/08/21 14:02 03/08/21 14:05 Sodium Chloride 0.9% 10ml Syr (Rad Only) IV 03/08/21 14:03 10 ml ONCE ONE Administration Sodium Chloride 50 ml 03/08/21 14:02 03/08/21 14:05 0.9 % Sodium Chloride 50 Ml Vial IV 03/08/21 14:03 50 ml ONCE ONE Administration Medical Decision Narrative: 40yo F evaluated for left upper gastric/chest pain. Patient mildly tachypneic on evaluation. Exquisitely tender to palpate over the affected area. Otherwise her physical exam is benign. Routine abdominal work-up is initiated. Laboratory studies are benign. Given the patient's exquisite tenderness to palpate, she is sent for a CT scan of the chest and abdomen/pelvis with IV contrast. Laboratory studies reveal mild leukocytosis. Otherwise unremarkable. Patient is sent for CT and CT PE study is negat
[2021-03-08 12:33] VITALS: BP 120/95; PULSE 85; O2SAT 100
[2021-03-08 13:04] LABS: Basophils # 0.2 K/mm3 (0-0.2); Basophils % 1.7 % (0.1-2.0); Eosinophils # 0.1 K/mm3 (0.0-0.4); Eosinophils % 0.5 % (0.1-12.0); Hematocrit 42.6 % (37.0-47.0); Hemoglobin 14.5 g/dL (12.2-16.2); Lymphocytes # 3.1 K/mm3 (0.7-4.5); Lymphocytes % 25.2 % (10-50); Mean Corpuscular HGB Conc 34.1 g/dL (31.8-35.4); Mean Corpuscular Hemoglobin 27.8 pg (27.0-31.2); Mean Corpuscular Volume 81.7 fl (81-99); Mean Platelet Volume 7.2 fl (7.4-10.4); Monocytes # 0.5 K/mm3 (0.1-1.0); Monocytes % 4.3 % (1.7-9.3); Neutrophils # 8.4 K/mm3 (1.8-7.8); Neutrophils % 68.2 % (37.0-80.0); Platelet Count 317 K/mm3 (142-424); Red Blood Count 5.21 M/mm3 (4.20-5.40); Red Cell Distribution Width 13.7 % (11.5-17.5); White Blood Count 12.3 K/mm3 (4.8-10.8)
[2021-03-08 13:05] LABS: Microscopic, Urine URINE MICROSCOPIC (MICROSCOPIC)
[2021-03-08 13:09] LABS: Appearance,Urine CLEAR (Clear); Bilirubin,Urine Negative (Negative); Blood, Urine Negative (Negative); Color,Urine YELLOW (Yellow); Glucose,Urine (UA) Negative (Negative); Ketones,Urine Negative (Negative); Leukocyte Esterase,Urine TRACE (Negative); Nitrate,Urine Negative (Negative); Protein,Urine Negative (Negative); Urobilinogen,Urine 0.2 EU/dl (0.2)
[2021-03-08 13:10] LABS: Urine Pregnancy, HCG Qual. Negative (Negative)
[2021-03-08 13:14] LABS: WBC,Urine Occasional #/hpf (0-3)
[2021-03-08 13:14] LABS: Chloride 103 mmol/L (98-107); Potassium 3.5 mmoL/L (3.5-5.1); Sodium 139 mmol/L (136-145)
[2021-03-08 13:16] LABS: Alanine Aminotransferase 17 U/L (12-78); Alkaline Phosphatase 87 U/L (38-126); Anion Gap 10.5 mEq/L (5-15); Aspartate Amino Transferase 24 U/L (14-36); Bilirubin,Total 0.4 mg/dl (0.2-1.3); Blood Urea Nitrogen 13 mg/dl (7-17); Carbon Dioxide 29 mmol/L (22.0-30.0); Creatinine Clearance Estimated 118 mL/min (50-200); Estimated Glomerular Filt Rate 79 ml/min (>60); GFR (African American) 96 ML/MIN (>60); Lipase 81 U/L (23-300)
[2021-03-08 13:17] LABS: Albumin Level 4.2 g/dl (3.5-5.0); Albumin/Globulin Ratio 1.3 (1.1-1.8); Calcium 8.8 mg/dl (8.4-10.2); Globulin 3.3 g/dL (1.3-3.2); Glucose 91 mg/dl (74-100); Total Protein,Serum 7.5 g/dl (6.3-8.2)
--- NOTE | 2021-03-08 13:20 | CT_ITS ---
PROCEDURE: CT ANGIO CHEST PE PROTOCOL CLINCIAL INDICATION: L chest/abd pain COMPARISON: No exams were available for comparison TECHNIQUE: IV Contrast: 70ML Isovue 370 Axial images obtained with sagittal and coronal reformats. All CT scans at the facility use one or more dose reduction, viz: automated exposure control, ma/kV adjustment per patient size (including targeted exams where dose is matched to indication, i.e. head), or iterative reconstruction technique. FINDINGS: HEART AND MEDIASTINAL STRUCTURES: No evidence of pulmonary embolus, aortic aneurysm, or aortic dissection. LUNGS AND PLEURAL SPACES: Calcified granuloma is present in the right lower lobe. No lobar consolidation or collapse. No effusions BONY STRUCTURES: No acute bony abnormalities apparent. UPPER ABDOMEN: Please see abdomen report ADDITIONAL FINDINGS: No other significant abnormalities. IMPRESSION: No acute finding Dictated by: Herman Quintana MD 03/08/2021 14:38 Herman Quintana MD in [facility] 03/08/2021 14:38
--- NOTE | 2021-03-08 13:20 | CT_ITS ---
PROCEDURE: CT ABDOMEN PELVIS W CON CLINICAL INDICATION: L chest/abd pain COMPARISON: CT CT ABDOMEN PELVIS WO/W CON from 12/27/[address] ANGIO CHEST PE PROTOCOL from 03/08/2021 TECHNIQUE: IV Contrast: 75ML Isovue 370 Oral Contrast None Axial images obtained with sagittal and coronal reformats. All CT scans at the facility use one or more dose reduction, viz: automated exposure control, ma/kV adjustment per patient size (including targeted exams where dose is matched to indication, i.e. head), or iterative reconstruction technique. FINDINGS: LOWER THORAX: No acute finding ABDOMEN & PELVIS: Prior cholecystectomy the liver, spleen, adrenal glands, and pancreas have an unremarkable appearance. No renal or ureteral calculi. No hydronephrosis. Unremarkable appearing appendix. There is a small umbilical hernia containing fat. There are few colonic diverticula but no evidence of diverticulitis. Surgical clip is also present in the left lower quadrant. There has been a prior hysterectomy. There is a surgical clip in the perirectal region on the right. There is a mild amount of fluid in the pelvis. There is a left ovarian cyst at 2.2 cm with minimal irregularity of the wall posteriorly and could represent a ruptured ovarian cyst. Suture lines are present in the adnexa on both sides. No acute bony findings. IMPRESSION: Small amount fluid in the pelvis with a 2 cm left ovarian cyst with irregular contour which could represent a ruptured ovarian cyst. Colonic diverticulosis without diverticulitis Dictated by: Herman Quintana MD 03/08/2021 14:48 Herman Quintana MD in [facility] 03/08/2021 14:48
--- NOTE | 2021-03-08 13:56 | PC.NURSE ---
Pt to CT scan via wheelchair at this time.
--- NOTE | 2021-03-08 14:27 | PC.NURSE ---
Pt resting comfortably, awaiting CT scan results.
[2021-03-08 15:38] VITALS: BP 114/81; PULSE 77; RESP 16; TEMP 36.9; O2SAT 99
== END 2021-03-08 15:40 | disposition home or self-care (01) ==
PROVIDERS: Emergency Provider Family Medicine; PCP Family Medicine
DX: R10.12 Left upper quadrant pain (principal); K21.9 Gastro-esophageal reflux disease without esophagitis; E78.5 Hyperlipidemia, unspecified; G43.709 Chronic migraine without aura, not intractable, without status migrainosus; Z88.0 Allergy status to penicillin
CPT/HCPCS: 71275; 74177; 80053; 81001; 81025; 83690; 85025; 99283; Q9967

== ENCOUNTER → 2021-03-14 14:16 | Outpatient (CLI) | payer OTHER, SELFPAY ==
--- NOTE | 2021-03-14 14:17 | US_ITS ---
PROCEDURE: US THYROID CLINICAL INDICATION: Enlarged thyroid COMPARISON: CT CT ANGIO NECK from 02/11/2021 FINDINGS: Right lobe: 3.5 x 1.5 x 0.7 cm. There is a 13 x 8 mm solid appearing nodule in the mid polar region posteriorly which is isoechoic to the thyroid gland. This nodule is well-circumscribed, wider than tall with no obvious calcifications TR level 3. Left lobe: 3.7 x 1.4 x 1.4 cm. Homogeneous echogenicity. No underlying nodule Isthmus: Unremarkable Additional findings: IMPRESSION: The 13 x 8 mm TR level 3 solid nodule right lobe of the thyroid gland less than 2.5 cm mildly suspicious. Recommend 12 month follow-up Dictated by: Herman Quintana MD 03/14/2021 17:39 Herman Quintana MD in [place] 03/14/2021 17:39
== END ==
PROVIDERS: PCP Family Medicine; Visit Provider Physician Assistant
DX: E04.9 Nontoxic goiter, unspecified (principal)
CPT/HCPCS: 76536

== ENCOUNTER → 2021-06-18 19:29 | Outpatient (CLI) | payer OTHER, SELFPAY | PROVIDERS: Visit Provider Nurse Practitioner Family | DX: Z20.822 Contact with and (suspected) exposure to COVID-19 (principal); J02.9 Acute pharyngitis, unspecified | CPT/HCPCS: C9803; U0003; U0005 ==

== ENCOUNTER → 2021-08-05 16:44 | Outpatient (CLI) | payer OTHER, SELFPAY | PROVIDERS: Visit Provider Family Medicine | DX: N39.0 Urinary tract infection, site not specified (principal) | CPT/HCPCS: 87086 ==

== ENCOUNTER 2021-08-06 16:05 | Emergency (ER) | payer OTHER, SELFPAY ==
--- NOTE | 2021-08-06 16:49 | HMH.EDUTC ---
[facility] Disposition Clinical Impression: Contact dermatitis Qualifiers: Contact dermatitis type: unspecified Contact dermatitis trigger: unspecified trigger Qualified Code(s): L25.9 - Unspecified contact dermatitis, unspecified cause Disposition: Home, Self-Care Condition on Discharge: Good Instructions: DI for Contact Dermatitis, Contact Dermatitis, Methylprednisolone Injection, Methylprednisolone Additional Instructions: Try to avoid contact with the offending substance. Try to identify it. Take benedryl 25 mg tablets regularly every 6 hours for the next couple of days if you can be drowsy and avoid driving. Don't start the oral steroids until tomorrow. Don't put the topical steroids (triamcinolone) on your face or your groin. Follow up with your regular doctor. GO TO THE ER FOR ANY WORSENING SYMPTOMS OR CONCERNS Prescriptions: methylPREDNISolone [Medrol] 4 mg PO DIRECTED 6 Days #21 packet Transmission Status: Pending to [facility] Triamcinolone Acetonide 1 applicatio TP TIDP PRN 7 Days #1 gm PRN Reason: Itching Transmission Status: Pending to [facility] Referrals: Main Das MD [Primary Care Provider] - Time of Disposition: 17:56 Medical Decision Making - Medical Records Medical records reviewed: No: I reviewed the patient's medical records. - Jaxson Inquiry Pt receiving controlled substance: No Vital Signs: 08/06/21 16:51 Temperature 98.4 F Temperature Source Oral Pulse Rate [Left] 79 Respiratory Rate 18 Blood Pressure [Right Arm] 134/89 Blood Pressure Mean [Right Arm] 104 02 Sat by Pulse Oximetry 97 - Lab Data Lab results reviewed: Yes: I reviewed the patient's lab results. [facility] HPI - General Stated complaint: rash on side of face Time Seen by Provider: 08/06/21 16:49 - History of Present Illness Provider Complaint: She states that since yesterday she has had itching and a rash on her face and her left arm. She denies any known contact with poison rafaela or any other known allergen. She has not started any medications recently. She denies feeling bad or other symptoms. - Related Data Home Medications Medication Instructions Recorded Confirmed amitriptyline 25 mg tablet 25 mg PO DAILY tab 08/05/21 08/05/21 fexofenadine 180 mg tablet 180 mg PO DAILY tab 08/05/21 08/05/21 fluticasone propionate 50 1 spray INTRANASAL DAILY g 08/05/21 08/05/21 mcg/actuation nasal spray,suspension levothyroxine 50 mcg tablet 50 mcg PO DAILY tab 08/05/21 08/05/21 meclizine 25 mg chewable tablet 25 mg PO DAILY tab 08/05/21 08/05/21 metoclopramide HCl 10 mg tablet 10 mg PO Q6H PRN 08/05/21 08/05/21 ropinirole 0.5 mg tablet 0.5 mg PO DAILY tab 08/05/21 08/05/21 Previous Rx's Medication Instructions Recorded famotidine 40 mg tablet 40 mg PO DAILY #90 tab 05/31/21 omeprazole 40 mg capsule,delayed 40 mg PO DAILY #90 cap 05/31/21 release ergocalciferol (vitamin D2) 1,250 1,250 mcg PO WEEKLY #5 cap 07/02/21 mcg (50,000 unit) capsule atorvastatin 40 mg tablet 40 mg PO HS #90 tab 07/11/21 propranolol 40 mg tablet 40 mg PO BID #60 tab 07/11/21 cholecalciferol (vitamin D3) 25 25 mcg PO DAILY #90 cap 07/29/21 mcg (1,000 unit) capsule ubrogepant 100 mg tablet 100 mg PO ONCE #10 tab 07/29/21 cholestyramine-aspartame 4 gram 4 g PO DAILY #210 g 08/05/21 oral powder nitrofurantoin 100 mg PO Q12H 5 Days #10 cap 08/05/21 monohydrate/macrocrystals 100 mg capsule Triamcinolone Acetonide 1 applicatio TP TIDP PRN 7 Days #1 08/06/21 gm methylPREDNISolone [Medrol] 4 mg PO DIRECTED 6 Days #21 08/06/21 packet Allergies Allergy/AdvReac Type Severity Reaction Status Date / Time Penicillins Allergy Verified 08/05/21 13:04 [facility] History - Hepatitis A Screen Attestation statement:: This patient has been screened for Hepatitis A risk factors. I have reviewed the patient's past medical history: No Medical History: Reports:: Gastroesophageal R
[2021-08-06 16:51] VITALS: BP 134/89; PULSE 79; RESP 18; TEMP 36.9; O2SAT 97; BMI 32.8
[2021-08-06 18:00] VITALS: BP 134/89; PULSE 79; RESP 18; TEMP 36.9
== END 2021-08-06 18:05 | disposition home or self-care (01) ==
PROVIDERS: Emergency Provider Nurse Practitioner Family; PCP Family Medicine
DX: L25.9 Unspecified contact dermatitis, unspecified cause (principal); K21.9 Gastro-esophageal reflux disease without esophagitis; E78.5 Hyperlipidemia, unspecified
CPT/HCPCS: 96372; 99202; G0463

== ENCOUNTER → 2021-08-23 12:16 | Outpatient (CLI) | payer OTHER, SELFPAY ==
[2021-08-23 12:19] LABS: Adenovirus F 40/41, stool Not Detected (NotDetected); Astrovirus Not Detected (NotDetected); Campylobacter Not Detected (NotDetected); Clostridium Difficile A/B, PCR Not Detected (NotDetected); Cryptosporidium Not Detected (NotDetected); Cyclospora Cayetanesis Not Detected (NotDetected); Entamoeba histolytica Not Detected (NotDetected); Enteroaggregative E coli Not Detected (NotDetected); Enteropathogenic E coli Not Detected (NotDetected); Enterotoxigenic E coli Not Detected (NotDetected); Giardia lamblia Not Detected (NotDetected); Norovirus Not Detected (NotDetected); Plesimonas Shigalloides, PCR Not Detected (NotDetected); Rotavirus A Not Detected (NotDetected); Salmonella, PCR Not Detected (NotDetected); Sapovirus Not Detected (NotDetected); Shiga-like toxin E coli Not Detected (NotDetected); Shigella Enterovasive E coli Not Detected (NotDetected); Vibrio Cholerae Not Detected (NotDetected); Vibrio, PCR Not Detected (NotDetected); Yersinia Entercolitica, PCR Not Detected (NotDetected)
[2021-08-23 12:30] LABS: Basophils # 0.2 K/mm3 (0-0.2); Basophils % 1.4 % (0.1-2.0); Eosinophils # 0.2 K/mm3 (0.0-0.4); Eosinophils % 1.7 % (0.1-12.0); Hematocrit 42.8 % (37.0-47.0); Lymphocytes % 22.5 % (10-50); Mean Corpuscular HGB Conc 32.6 g/dL (31.8-35.4); Mean Corpuscular Hemoglobin 28.3 pg (27.0-31.2); Mean Corpuscular Volume 86.8 fl (81-99); Mean Platelet Volume 6.8 fl (7.4-10.4); Monocytes # 0.7 K/mm3 (0.1-1.0); Monocytes % 5.2 % (1.7-9.3); Neutrophils # 9.3 K/mm3 (1.8-7.8); Neutrophils % 69.2 % (37.0-80.0); Platelet Count 310 K/mm3 (142-424); Red Blood Count 4.94 M/mm3 (4.20-5.40); Red Cell Distribution Width 13.5 % (11.5-17.5); White Blood Count 13.5 K/mm3 (4.8-10.8)
[2021-08-23 13:26] LABS: Anion Gap 8.9 mEq/L (5-15); Blood Urea Nitrogen 11 mg/dl (7-17); Calcium 9.1 mg/dl (8.4-10.2); Carbon Dioxide 34 mmol/L (22.0-30.0); Chloride 97 mmol/L (98-107); Estimated Glomerular Filt Rate 69 ml/min (>60); GFR (African American) 83 ML/MIN (>60); Glucose 75 mg/dl (74-100); Potassium 3.9 mmoL/L (3.5-5.1); Sodium 136 mmol/L (136-145)
[2021-08-23 15:35] LABS: NT Pro Brain Natriuretic Pep. < 11.1 pg/mL (0-125)
== END ==
PROVIDERS: Internal Medicine Cardiovascular Disease; Urology; PCP Physician Assistant; Visit Provider Family Medicine
DX: R06.00 Dyspnea, unspecified (principal); R07.9 Chest pain, unspecified; R00.2 Palpitations; Q21.1 Atrial septal defect; R42 Dizziness and giddiness; R55 Syncope and collapse; R51.9 Headache, unspecified; R53.83 Other fatigue; R19.7 Diarrhea, unspecified; K21.9 Gastro-esophageal reflux disease without esophagitis
CPT/HCPCS: 36415; 80048; 83880; 85025; 87507; 93270

== ENCOUNTER → 2021-09-03 10:14 | Outpatient (CLI) | payer OTHER, SELFPAY ==
[2021-09-03 14:28] LABS: Alanine Aminotransferase 13 U/L (12-78); Albumin Level 3.8 g/dl (3.5-5.0); Albumin/Globulin Ratio 1.4 (1.1-1.8); Alkaline Phosphatase 79 U/L (38-126); Aspartate Amino Transferase 21 U/L (14-36); Bilirubin,Total 0.3 mg/dl (0.2-1.3); Blood Urea Nitrogen 6 mg/dl (7-17); Calcium 8.8 mg/dl (8.4-10.2); Carbon Dioxide 28 mmol/L (22.0-30.0); Chloride 104 mmol/L (98-107); Estimated Glomerular Filt Rate 79 ml/min (>60); GFR (African American) 96 ML/MIN (>60); Globulin 2.7 g/dL (1.3-3.2); Glucose 90 mg/dl (74-100); Sodium 138 mmol/L (136-145); Total Protein,Serum 6.5 g/dl (6.3-8.2)
[2021-09-03 14:29] LABS: Basophils # 0.1 K/mm3 (0-0.2); Basophils % 0.6 % (0.1-2.0); Eosinophils # 0.1 K/mm3 (0.0-0.4); Hematocrit 39.2 % (37.0-47.0); Hemoglobin 12.6 g/dL (12.2-16.2); Lymphocytes # 2.3 K/mm3 (0.7-4.5); Lymphocytes % 27.8 % (10-50); Mean Corpuscular HGB Conc 32.2 g/dL (31.8-35.4); Mean Corpuscular Volume 86.8 fl (81-99); Mean Platelet Volume 7.7 fl (7.4-10.4); Monocytes # 0.4 K/mm3 (0.1-1.0); Monocytes % 4.4 % (1.7-9.3); Neutrophils # 5.5 K/mm3 (1.8-7.8); Neutrophils % 66.2 % (37.0-80.0); Platelet Count 384 K/mm3 (142-424); Red Blood Count 4.51 M/mm3 (4.20-5.40); Red Cell Distribution Width 13.5 % (11.5-17.5); White Blood Count 8.3 K/mm3 (4.8-10.8)
[2021-09-03 14:58] LABS: Thyroid Stimulating Hormone 2.02 uIU/mL (0.465-4.68)
[2021-09-04 08:16] LABS: Immunoglobulin A, Qn 175 mg/dL (87-352)
[2021-09-04 15:12] LABS: Tissue Transglutaminase IgA Ab <2 U/mL (0-3)
== END ==
PROVIDERS: Visit Provider Physician Assistant
DX: R19.7 Diarrhea, unspecified (principal); R76.8 Other specified abnormal immunological findings in serum; Z79.899 Other long term (current) drug therapy
CPT/HCPCS: 36415; 80053; 82784; 83516; 84443; 85025

== ENCOUNTER → 2021-11-05 12:04 | Outpatient (CLI) | payer OTHER, SELFPAY ==
--- NOTE | 2021-11-05 12:10 | XR_ITS ---
FINAL REPORT CLINICAL HISTORY: low back pain, x 2mos , no injury COMPARISON: September 16, 2017 FINDINGS: LUMBAR SPINE 5 views of the lumbar spine were obtained. There is no evidence of fracture or dislocation. There is mild rightward curvature. The vertebral alignment is normal. There are mild degenerative changes with small osteophytes which are stable. No paraspinous soft tissue abnormalities identified. IMPRESSION: Stable, degenerative change with no acute bony abnormality. Reviewed, Interpreted and Dictated by Manny Gregg III, MD Transcribed by Jennifer Ang Authenticated by Manny Gregg III, MD on 11/05/2021 12:48:[address] [facility]
== END ==
PROVIDERS: PCP Physician Assistant; Visit Provider Physician Assistant
DX: M54.50 Low back pain, unspecified (principal)
CPT/HCPCS: 72110

== ENCOUNTER → 2021-11-22 07:49 | Outpatient (CLI) | payer OTHER, SELFPAY ==
--- NOTE | 2021-11-22 07:49 | MR_ITS ---
FINAL REPORT CLINICAL HISTORY: low back pain, pain down left leg, urinary inconti lbp with bilateral hip and leg pain , pt stated left is worse no injury of trauma x 1 month but getting sorse unable to stand up straight FINDINGS: Multiplanar MR imaging of the lumbar spine was performed without contrast. On the sagittal T2-weighted images, the lumbar discs demonstrate normal signal and height. The vertebrae are of normal height. The vertebral alignment is normal. L1-2: There is no significant canal stenosis or neural foraminal narrowing. L2-3: There is no significant canal stenosis or neural foraminal narrowing. L3-4: There is no significant canal stenosis or neural foraminal narrowing. L4-5: There is no significant canal stenosis or neural foraminal narrowing. L5-S1: There is a small right paracentral disc protrusion with mild compromise on the right lateral recess. IMPRESSION: Small right paracentral disc protrusion with mild compromise on the right lateral recess at L5-S1. Reviewed, Interpreted and Dictated by Óscar Montemayor MD Transcribed by David Wylie Authenticated by Óscar Montemayor MD on 11/22/2021 11:17:[address] [facility]
== END ==
PROVIDERS: PCP Physician Assistant; Visit Provider Physician Assistant
DX: M54.50 Low back pain, unspecified (principal); M54.10 Radiculopathy, site unspecified; R32 Unspecified urinary incontinence
CPT/HCPCS: 72148; 76376

== ENCOUNTER → 2022-01-08 10:07 | Outpatient (CLI) | payer OTHER, SELFPAY ==
[2022-01-08 10:39] LABS: Basophils # 0.1 K/mm3 (0-0.2); Basophils % 1.8 % (0.1-2.0); Eosinophils # 0.2 K/mm3 (0.0-0.4); Eosinophils % 3.1 % (0.1-12.0); Hematocrit 40.9 % (37.0-47.0); Hemoglobin 13.6 g/dL (12.2-16.2); Lymphocytes # 2.2 K/mm3 (0.7-4.5); Lymphocytes % 29.9 % (10-50); Mean Corpuscular HGB Conc 33.3 g/dL (31.8-35.4); Mean Corpuscular Hemoglobin 27.9 pg (27.0-31.2); Mean Corpuscular Volume 83.6 fl (81-99); Mean Platelet Volume 7.6 fl (7.4-10.4); Monocytes # 0.4 K/mm3 (0.1-1.0); Neutrophils # 4.4 K/mm3 (1.8-7.8); Neutrophils % 60.1 % (37.0-80.0); Platelet Count 283 K/mm3 (142-424); Red Blood Count 4.89 M/mm3 (4.20-5.40); Red Cell Distribution Width 13.2 % (11.5-17.5); White Blood Count 7.3 K/mm3 (4.8-10.8)
[2022-01-08 11:05] LABS: Erythrocyte Sedimentation Rate 14 mm/hr (0-20)
[2022-01-08 12:37] LABS: Alanine Aminotransferase 29 U/L (12-78); Albumin/Globulin Ratio 1.4 (1.1-1.8); Alkaline Phosphatase 68 U/L (38-126); Anion Gap 10.7 mEq/L (5-15); Aspartate Amino Transferase 29 U/L (14-36); Blood Urea Nitrogen 12 mg/dl (7-17); Carbon Dioxide 28 mmol/L (22.0-30.0); Chloride 104 mmol/L (98-107); Chol/HDL Ratio 3.8 (1-3.5); Cholesterol 201 mg/dl (140-200); Estimated Glomerular Filt Rate 69 ml/min (>60); GFR (African American) 83 ML/MIN (>60); Globulin 2.8 g/dL (1.3-3.2); Glucose 80 mg/dl (74-100); HDL Cholesterol 53 mg/dl (40-60); Potassium 3.7 mmoL/L (3.5-5.1); Sodium 139 mmol/L (136-145); Total Protein,Serum 6.8 g/dl (6.3-8.2); Triglycerides 155 mg/dl (30-150); VLDL Cholesterol 31 mg/dL (0-40)
[2022-01-08 12:49] LABS: C-Reactive Protein 2.4 mg/L (0-4); Direct LDL Cholesterol 96.03 mg/dL (100-129)
[2022-01-08 12:56] LABS: 25-OH Vitamin D, Total 28.1 ng/mL (30-100)
[2022-01-08 13:09] LABS: Prostate Specific Ag Screen < 0.1 ng/ml (0.0-0.0); Thyroid Stimulating Hormone 2.31 uIU/mL (0.465-4.68)
[2022-01-08 13:10] LABS: Bilirubin,Total 0.1 mg/dl (0.2-1.3)
[2022-01-08 13:44] LABS: Vitamin B12 662 pg/mL (239-931)
[2022-01-09 08:29] LABS: FSH 55.6 mIU/mL (.); LH 40.6 mIU/mL (.); Progesterone <0.1 ng/mL (.)
[2022-01-09 11:17] LABS: RA Latex Turbid. <10.0 IU/mL (<14.0)
[2022-01-09 14:37] LABS: Anti-Centromere B Antibodies <0.2 AI (0.0-0.9); Anti-DNA (DS) Ab Qn 1 IU/mL (0-9); Anti-Jo-1 <0.2 AI (0.0-0.9); Anti-Smith Antibody <0.2 AI (0.0-0.9); Antichromatin Antibodies 0.2 AI (0.0-0.9); Antiscleroderma-70 Antibodies <0.2 AI (0.0-0.9); RNP Antibodies <0.2 AI (0.0-0.9); Sjogren's Anti-SS-A <0.2 AI (0.0-0.9); Sjogren's Anti-SS-B <0.2 AI (0.0-0.9)
[2022-01-10 00:08] LABS: Anti-Cyclic Citrullinated Pept 5 units (0-19); Lupus Reflex Interpretation Comment: (.); PTT-LA 27.8 sec (0.0-51.9); dRVVT 38.5 sec (0.0-47.0)
[2022-01-10 13:16] LABS: Estrogen 213 pg/mL (.)
== END ==
PROVIDERS: PCP Physician Assistant; Visit Provider Physician Assistant
DX: R76.8 Other specified abnormal immunological findings in serum (principal); E55.9 Vitamin D deficiency, unspecified; M54.50 Low back pain, unspecified; M54.10 Radiculopathy, site unspecified; R32 Unspecified urinary incontinence
CPT/HCPCS: 36415; 80053; 80061; 82306; 82607; 82672; 82746; 83001; 83002; 84144; 84443; 85025; 85613; 85651; 86140; 86200; 86225; 86235; 86431; G0103

== ENCOUNTER → 2022-04-15 09:02 | Outpatient (CLI) | payer OTHER, SELFPAY ==
[2022-04-15 16:13] LABS: Anion Gap 8.4 mEq/L (5-15); Blood Urea Nitrogen 3 mg/dl (7-17); Calcium 8.8 mg/dl (8.4-10.2); Carbon Dioxide 30 mmol/L (22.0-30.0); Chloride 104 mmol/L (98-107); Estimated Glomerular Filt Rate 79 ml/min (>60); GFR (African American) 96 ML/MIN (>60); Glucose 114 mg/dl (74-100); Potassium 3.4 mmoL/L (3.5-5.1); Sodium 139 mmol/L (136-145)
== END ==
PROVIDERS: PCP Nurse Practitioner Family; Visit Provider Nurse Practitioner Family
DX: E87.6 Hypokalemia (principal)
CPT/HCPCS: 36415; 80048

== ENCOUNTER 2022-04-18 07:00 | Outpatient (RCR) | payer OTHER, SELFPAY ==
--- NOTE | 2022-04-16 09:35 | HMH.PTOPEV ---
PT Outpatient Evaluation Rehab PT Outpatient Evaluation Start: 04/16/22 08:04 Freq: Status: Active Protocol: Document 04/16/22 08:04 [email or web address] (Rec: 04/16/22 09:33 [email or web address] [id number]) E-signed By Gael Basilio, PT Outpatient Therapy Subjective History Subjective History Pt. is a 41 year old female who presents to [facility] Outpatient Physical Therapy Services in [place] for the initial evaluation this date( 04/16/22) w/ c's/o subacute on chronic and constant lumbar/ BLE(R>L) neuralgia, mechanical P!, and muscle spasms of insidious onset that have worsened since October of this year. However, pt. reports initial onset of symptoms began over a year ago just walking through my house. Pt. reports planning on having Physical Therapy for this current complaint back in October, but stated having multiple surgeries at that time that needed to be addressed. Pt. reports symptoms worsen w/ bending over to weedeat, twisting, and prolonged sitting/standing. Pt. reports nothing really has given her symptom relief. Pt. reports having a MRI back in Sep. of this year, but can' t recall results. Pt. denies having injections for current complaint. Pt. reports having numbness/tingling into BLEs(R> L) w/ RLE foot numbness. RLE radiates to the knee/foot, LLE radiates to mid-thigh. Pt. denies having bowel/bladder dysfunction nor saddle paresthesia at this time. Pt. denies history of cancer(self) , but reports family(dad) history of bone/multiple myeloma cancer. Pt. denies history of pacemaker, denies latex allergy, denies diabetes
== END 2022-05-26 10:39 | disposition home or self-care (01) ==
LOC: PT.CARL 07:00
PROVIDERS: PCP Physician Assistant; Visit Provider Physician Assistant
DX: M54.50 Low back pain, unspecified (principal)
CPT/HCPCS: 97010; 97014; 97035; 97110; 97140; 97163; G0283

== ENCOUNTER → 2022-05-13 13:57 | Outpatient (CLI) | payer OTHER, SELFPAY ==
--- NOTE | 2022-05-13 13:58 | US_ITS ---
FINAL REPORT CLINICAL HISTORY: Hypothyroidism COMPARISON: 03/14/2021 FINDINGS: Sonographic images of the thyroid were obtained. Thyroid is heterogeneous bilaterally. The right lobe of the thyroid measures 4.0 x 1.8 x 1.8 cm. The left lobe of the thyroid measures 3.8 x 1.3 x 1.0 cm. There is a solid, hyperechoic right thyroid nodule measuring 11 x 9 x 10 mm, previously measured 13 x 8 x 10 mm. Nodule is visually stable, consistent with TI-RADS category 3. There is a 5 mm hypoechoic nodule in the right isthmus consistent with TI-RADS category 4. In the left lobe of the thyroid is a solid, hypoechoic nodule measuring 7 x 3 x 6 mm consistent with TI-RADS category 4. There is a 2nd left thyroid nodule which is solid and hypoechoic measuring 3 x 4 x 2 mm consistent with TI-RADS category 4. IMPRESSION: Stable dominant nodule in the right thyroid lobe. Other small nodules bilaterally. No follow-up required. Reviewed, Interpreted and Dictated by Manny Gregg III, MD Transcribed by Mirian Marsh Authenticated and [facility]
--- NOTE | 2022-05-13 14:03 | MM_ITS ---
PROCEDURE INFORMATION: Exam: MG Bilateral Screening 3D Mammography Exam date and time: 05/13/2022 2:01 PM Age: 42 years old Clinical indication: Screening examination; Additional info: Screening mammogram. Family history of breast carcinoma. TECHNIQUE: Imaging protocol: Bilateral Screening tomosynthesis and 2D mammography including computer-aided detection (CAD) when performed. COMPARISON: MG MM DIG SCREENING MAMM BI W/CAD 02/08/2021 8:58 AM FINDINGS: MAMMOGRAPHY: Breast composition: The breasts are heterogeneously dense, which may obscure small masses. Mass: No suspicious masses. Architectural distortion: No suspicious distortion. Calcifications: No suspicious calcifications. Asymmetric density: None. Skin thickening: None. Axillary adenopathy: None. IMPRESSION: No mammographic evidence of malignancy. Annual screening is recommended unless otherwise clinically indicated. ASSESSMENT: BI-RADS Category 1: Negative
== END ==
PROVIDERS: PCP Nurse Practitioner Family; Visit Provider Physician Assistant
DX: E03.9 Hypothyroidism, unspecified (principal); Z12.31 Encounter for screening mammogram for malignant neoplasm of breast
CPT/HCPCS: 76536; 77063; 77067

== ENCOUNTER → 2022-05-15 08:32 | Outpatient (CLI) | payer OTHER, SELFPAY ==
[2022-05-15 08:42] LABS: MANUAL DIFFERENTIAL MANUAL DIFFERENTIAL (MANUAL DIFF)
[2022-05-15 09:36] LABS: Basophils # 0.1 K/mm3 (0-0.2); Basophils % 1.1 % (0.1-2.0); Eosinophils # 0.1 K/mm3 (0.0-0.4); Eosinophils % 0.8 % (0.1-12.0); Hematocrit 43.8 % (37.0-47.0); Hemoglobin 14.3 g/dL (12.2-16.2); Lymphocytes # 2.7 K/mm3 (0.7-4.5); Lymphocytes % 29.4 % (10-50); Mean Corpuscular HGB Conc 32.7 g/dL (31.8-35.4); Mean Corpuscular Hemoglobin 27.8 pg (27.0-31.2); Mean Corpuscular Volume 84.9 fl (81-99); Mean Platelet Volume 7.7 fl (7.4-10.4); Monocytes # 0.5 K/mm3 (0.1-1.0); Monocytes % 5.6 % (1.7-9.3); Neutrophils # 5.8 K/mm3 (1.8-7.8); Neutrophils % 63.1 % (37.0-80.0); Platelet Count 357 K/mm3 (142-424); Red Blood Count 5.16 M/mm3 (4.20-5.40); Red Cell Distribution Width 13.9 % (11.5-17.5); White Blood Count 9.1 K/mm3 (4.8-10.8)
[2022-05-15 09:52] LABS: Chloride 101 mmol/L (98-107); Potassium 4.3 mmoL/L (3.5-5.1); Sodium 141 mmol/L (136-145)
[2022-05-15 09:54] LABS: Blood Urea Nitrogen 8 mg/dl (7-17); Estimated Glomerular Filt Rate 61 ml/min (>60); GFR (African American) 74 ML/MIN (>60)
[2022-05-15 09:55] LABS: Alanine Aminotransferase 22 U/L (12-78); Albumin Level 4.3 g/dl (3.5-5.0); Albumin/Globulin Ratio 1.6 (1.1-1.8); Alkaline Phosphatase 102 U/L (38-126); Anion Gap 12.3 mEq/L (5-15); Aspartate Amino Transferase 30 U/L (14-36); Bilirubin,Total < 0.1 mg/dl (0.2-1.3); Calcium 9.1 mg/dl (8.4-10.2); Carbon Dioxide 32 mmol/L (22.0-30.0); Cholesterol 219 mg/dl (140-200); Globulin 2.7 g/dL (1.3-3.2); Glucose 88 mg/dl (74-100); Triglycerides 193 mg/dl (30-150); VLDL Cholesterol 39 mg/dL (0-40)
[2022-05-15 09:56] LABS: Chol/HDL Ratio 4.5 (1-3.5); HDL Cholesterol 49 mg/dl (40-60)
[2022-05-15 10:12] LABS: T4 (Thyroxine) 7.6 ug/dl (5.53-11.0)
[2022-05-15 10:26] LABS: Thyroid Stimulating Hormone 2.44 uIU/mL (0.465-4.68)
[2022-05-15 12:16] LABS: Lymphocytes % 30 % (10-50); Monocytes % 5 % (2-9); Neutrophils % 65 % (42-76); Total Cells Counted 100
[2022-05-15 12:17] LABS: Platelet Estimate Normal; RBC Morphology Normal
[2022-05-16 09:12] LABS: Triiodothyronine (T3) Free 3.1 pg/mL (2.0-4.4)
== END ==
PROVIDERS: Family Medicine
DX: E06.3 Autoimmune thyroiditis (principal); E78.5 Hyperlipidemia, unspecified; R19.7 Diarrhea, unspecified; K90.9 Intestinal malabsorption, unspecified
CPT/HCPCS: 36415; 80053; 80061; 84436; 84443; 84481; 85007; 85014; 85018; 85048; 85049

== ENCOUNTER → 2022-06-09 14:59 | Outpatient (CLI) | payer OTHER, SELFPAY ==
[2022-06-09 14:19] LABS: Basophils # 0.1 K/mm3 (0-0.2); Basophils % 1.1 % (0.1-2.0); Eosinophils # 0.1 K/mm3 (0.0-0.4); Eosinophils % 1.3 % (0.1-12.0); Hemoglobin 14.4 g/dL (12.2-16.2); Lymphocytes # 2.5 K/mm3 (0.7-4.5); Mean Corpuscular HGB Conc 32.8 g/dL (31.8-35.4); Mean Corpuscular Hemoglobin 27.5 pg (27.0-31.2); Monocytes # 0.4 K/mm3 (0.1-1.0); Monocytes % 5.2 % (1.7-9.3); Neutrophils # 4.7 K/mm3 (1.8-7.8); Neutrophils % 60.3 % (37.0-80.0); Platelet Count 329 K/mm3 (142-424); Red Blood Count 5.23 M/mm3 (4.20-5.40); Red Cell Distribution Width 13.3 % (11.5-17.5); White Blood Count 7.8 K/mm3 (4.8-10.8)
[2022-06-09 15:07] LABS: Alanine Aminotransferase 18 U/L (12-78); Albumin/Globulin Ratio 1.4 (1.1-1.8); Alkaline Phosphatase 131 U/L (38-126); Anion Gap 12.9 mEq/L (5-15); Aspartate Amino Transferase 24 U/L (14-36); Bilirubin,Total 0.3 mg/dl (0.2-1.3); Blood Urea Nitrogen 6 mg/dl (7-17); Calcium 8.9 mg/dl (8.4-10.2); Carbon Dioxide 31 mmol/L (22.0-30.0); Chloride 100 mmol/L (98-107); Chol/HDL Ratio 4.4 (1-3.5); Cholesterol 225 mg/dl (140-200); Estimated Glomerular Filt Rate 69 ml/min (>60); GFR (African American) 83 ML/MIN (>60); Globulin 2.9 g/dL (1.3-3.2); Glucose 79 mg/dl (74-100); HDL Cholesterol 51 mg/dl (40-60); Potassium 3.9 mmoL/L (3.5-5.1); Sodium 140 mmol/L (136-145); Total Protein,Serum 6.9 g/dl (6.3-8.2); Triglycerides 196 mg/dl (30-150); VLDL Cholesterol 39 mg/dL (0-40)
[2022-06-09 15:18] LABS: Direct LDL Cholesterol 123.83 mg/dL (100-129)
[2022-06-09 15:24] LABS: 25-OH Vitamin D, Total 21.3 ng/mL (30-100)
[2022-06-09 15:37] LABS: Erythrocyte Sedimentation Rate 14 mm/hr (0-20)
[2022-06-09 15:38] LABS: Thyroid Stimulating Hormone 1.77 uIU/mL (0.465-4.68)
[2022-06-09 15:57] LABS: Vitamin B12 407 pg/mL (239-931)
[2022-06-09 16:40] LABS: C-Reactive Protein 0.7 mg/L (0-4)
[2022-06-11 08:23] LABS: RA Latex Turbid. <10.0 IU/mL (<14.0)
[2022-06-11 16:31] LABS: Anti-Centromere B Antibodies <0.2 AI (0.0-0.9); Anti-DNA (DS) Ab Qn 1 IU/mL (0-9); Anti-Jo-1 <0.2 AI (0.0-0.9); Anti-Smith Antibody <0.2 AI (0.0-0.9); Antichromatin Antibodies 0.2 AI (0.0-0.9); Antiscleroderma-70 Antibodies <0.2 AI (0.0-0.9); RNP Antibodies <0.2 AI (0.0-0.9); Sjogren's Anti-SS-A <0.2 AI (0.0-0.9); Sjogren's Anti-SS-B <0.2 AI (0.0-0.9)
[2022-06-13 00:15] LABS: Anti-Cyclic Citrullinated Pept 3 units (0-19)
== END ==
PROVIDERS: PCP Physician Assistant; Visit Provider Physician Assistant
DX: L65.9 Nonscarring hair loss, unspecified (principal); E55.9 Vitamin D deficiency, unspecified; Z79.899 Other long term (current) drug therapy
CPT/HCPCS: 80053; 80061; 82306; 82607; 84443; 85025; 85651; 86140; 86200; 86225; 86235; 86431

== ENCOUNTER → 2022-06-17 10:05 | Outpatient (CLI) | payer OTHER, SELFPAY ==
--- NOTE | 2022-06-17 10:09 | XR_ITS ---
FINAL REPORT TECHNIQUE: Chest PA & Lateral CLINICAL HISTORY: dyspnea COMPARISON: 03/23/2018 FINDINGS: TWO-VIEW CHEST The heart size is normal. The mediastinum is normal. The lungs are clear. There is no pneumothorax. IMPRESSION: No acute cardiopulmonary process. Reviewed, Interpreted and Dictated by Óscar Montemayor MD Transcribed by Mirian Marsh Authenticated and [facility]
== END ==
PROVIDERS: PCP Physician Assistant; Visit Provider Physician Assistant
DX: R06.00 Dyspnea, unspecified (principal)
CPT/HCPCS: 71046

== ENCOUNTER 2022-08-27 09:57 | Emergency (ER) | payer OTHER, SELFPAY ==
--- NOTE | 2022-08-27 10:05 | EXP.UTC ---
Discharge Plan Disposition Patient Disposition: Home, Self-Care Condition: Good Prescriptions Prescriptions: New benzonatate [benzonatate] 100 mg capsule 100 mg PO TIDP PRN (Reason: Cough) Qty: 30 0RF methylprednisolone 4 mg Tablets,Dose Pack 4 mg PO DIRECTED Qty: 21 0RF cefdinir 250 mg/5 mL suspension for reconstitution 300 mg PO BID 10 Days Qty: 120 0RF No Action fluticasone propion-salmeterol [Advair Diskus] 500-50 mcg/dose blister with device 1 inh INHALATION ONCE ergocalciferol (vitamin D2) 1,250 mcg (50,000 unit) capsule 1,250 mcg PO WEEKLY Qty: 14 3RF cholecalciferol (vitamin D3) 25 mcg (1,000 unit) capsule 25 mcg PO DAILY Qty: 30 3RF atorvastatin 80 mg tablet 80 mg PO DAILY simethicone 125 mg capsule 125 mg PO QPCHS estradiol 1 mg tablet 1 mg PO DAILY levothyroxine [Euthyrox] 50 mcg tablet 50 mcg PO DAILY Ubrelvy 100 mg tablet 100 mg PO ONCE Referrals Follow up/Referrals: Juana Batista PA [Primary Care Provider] - See instructions Activity Restrictions/Add. Instructions Additional Instructions/Restrictions: Drink plenty of fluids. Take tylenol or ibuprofen for pain or fever. Take the medications as directed. Follow up with your regular doctor. GO TO THE ER FOR ANY WORSENING SYMPTOMS Throw your tooth brush away and get a new one. Clinical Impressions Clinical Impression: Strep throat, Exposure to 2019 novel coronavirus Instructions Patient Instructions: Strep Throat, DI for Strep Throat Discharge ED Provider: Lucius Murray [facility] HPI General Stated complaint: cough soa fever congestion headache Time Seen by Provider: 08/27/22 10:05 History of Present Illness Provider Complaint: She states that for the past 2 days she has had ore throat, chills, body aches and low grade fever Related Data Home Medications Medication Instructions Recorded Confirmed fluticasone 500 mcg-salmeterol 50 1 inh inhalation ONCE . 11/05/21 08/27/22 mcg/dose blistr powdr for inhalation (Advair Diskus) atorvastatin 80 mg tablet 80 mg PO DAILY . 08/27/22 08/27/22 estradiol 1 mg tablet 1 mg PO DAILY . 08/27/22 08/27/22 levothyroxine 50 mcg tablet 50 mcg PO DAILY , 08/27/22 08/27/22 (Euthyrox) simethicone 125 mg capsule 125 mg PO QPCHS . 08/27/22 08/27/22 ubrogepant 100 mg tablet (Ubrelvy) 100 mg PO ONCE . 08/27/22 08/27/22 Previous Rx's Medication Instructions Recorded cholecalciferol (vitamin D3) 25 25 mcg PO DAILY #30 caps 06/10/22 mcg (1,000 unit) capsule ergocalciferol (vitamin D2) 1,250 1,250 mcg PO WEEKLY #14 caps 06/10/22 mcg (50,000 unit) capsule benzonatate 100 mg capsule 100 mg PO TIDP PRN Cough #30 caps 08/27/22 cefdinir 250 mg/5 mL oral 300 mg (6 mL) PO BID 10 days #120 08/27/22 suspension mL methylprednisolone 4 mg tablets in 4 mg PO DIRECTED #21 tabs 08/27/22 a dose pack Allergies Allergy/AdvReac Type Severity Reaction Status Date / Time Penicillins Allergy Verified 08/27/22 10:23 levothyroxine AdvReac Verified 08/27/22 10:23 PFSH PFS Disclaimer: The information contained in this section may have been updated after the patient was seen, as this information can be updated by other users. Medical History Abdominal pain Asthma Chest pain Chronic cholecystitis Contact dermatitis Dizziness DUB (dysfunctional uterine bleeding) Randall's thyroiditis High cholesterol Migraine headache Migraine headache without aura Ovarian cyst Patent foramen ovale with right to left shunt PFO with atrial septal aneurysm Postsurgical menopause Precordial chest pain Shingles Strep throat Upper abdominal pain Vaginal after Surgical History Antepartum varicose veins of legs Biliary dyskinesia delivery delivered H/O pyloroplasty H/O: hysterectomy Hiatal
[2022-08-27 10:10] VITALS: BP 144/94; PULSE 98; RESP 20; TEMP 36.6; O2SAT 99; BMI 27.3
--- NOTE | 2022-08-27 10:17 | XR_ITS ---
FINAL REPORT CLINICAL HISTORY: cough, recent COVID exposure COMPARISON: 06/17/2022 FINDINGS: PA and lateral views of the chest were obtained. The cardiac and mediastinal silhouettes are within normal limits. The lungs are clear. There is no pleural effusion or pneumothorax. No acute osseous abnormality is identified. IMPRESSION: No radiographic evidence of acute cardiac or pulmonary disease. Reviewed, Interpreted and Dictated by Kaylin Canela MD Transcribed by Ingris Araujo Authenticated and [facility]
[2022-08-27 11:04] LABS: UTC Strep Screen (Rapid) Positive (Negative)
[2022-08-27 11:18] VITALS: BP 144/94; PULSE 98; RESP 20; TEMP 36.6; O2SAT 98
== END 2022-08-27 11:18 | disposition home or self-care (01) ==
PROVIDERS: Emergency Provider Nurse Practitioner Family; PCP Physician Assistant
DX: J02.0 Streptococcal pharyngitis (principal); U07.1 COVID-19
CPT/HCPCS: 71046; 87880; 99212; 99213; C9803; G0463; U0003; U0005

== ENCOUNTER → 2023-02-03 10:58 | Outpatient (CLI) | payer OTHER, SELFPAY ==
--- NOTE | 2023-02-03 11:03 | MR_ITS ---
FINAL REPORT CLINICAL HISTORY: URINARY RETENTION, LEFT SIDED SCIATICA. LOW BACK PAIN WHILE URINATING. LOSS OF URGE TO PEE. CANNOT URINATE UNLESS BENDING OVER FINDINGS: Multiplanar MR images of the pelvis were performed without contrast. There is no fracture, bone bruising or marrow edema. No bony mass is identified. There is no evidence of avascular necrosis. No significant joint effusion is seen. The musculature is intact. The tendons are intact. There is no soft tissue mass or cyst identified. There has been hysterectomy. IMPRESSION: No focal abnormality identified. Reviewed, Interpreted and Dictated by Manny Gregg III, MD Transcribed by David Wylie Authenticated and [facility]
== END ==
PROVIDERS: PCP Internal Medicine Adolescent Medicine; Visit Provider Internal Medicine Adolescent Medicine
DX: M54.32 Sciatica, left side (principal); R33.9 Retention of urine, unspecified; M79.2 Neuralgia and neuritis, unspecified
CPT/HCPCS: 72195

== ENCOUNTER → 2023-04-07 10:24 | Outpatient (CLI) | payer OTHER, SELFPAY ==
[2023-04-07 11:17] LABS: Basophils # 0.1 K/mm3 (0-0.2); Eosinophils # 0.2 K/mm3 (0.0-0.4); Eosinophils % 3.5 % (0.1-12.0); Hematocrit 43.7 % (37.0-47.0); Hemoglobin 14.3 g/dL (12.2-16.2); Lymphocytes # 2.5 K/mm3 (0.7-4.5); Lymphocytes % 37.7 % (10-50); Mean Corpuscular HGB Conc 32.7 g/dL (31.8-35.4); Mean Corpuscular Hemoglobin 27.4 pg (27.0-31.2); Mean Corpuscular Volume 84.1 fl (81-99); Mean Platelet Volume 7.8 fl (7.4-10.4); Monocytes # 0.4 K/mm3 (0.1-1.0); Monocytes % 5.6 % (1.7-9.3); Neutrophils # 3.4 K/mm3 (1.8-7.8); Neutrophils % 52.2 % (37.0-80.0); Platelet Count 285 K/mm3 (142-424); Red Cell Distribution Width 12.8 % (11.5-17.5); White Blood Count 6.5 K/mm3 (4.8-10.8)
[2023-04-07 11:33] LABS: Hemoglobin A1C 5.3 % (4.0-6.0)
[2023-04-07 11:38] LABS: Potassium 4.1 mmoL/L (3.5-5.1)
[2023-04-07 11:39] LABS: Alanine Aminotransferase 18 U/L (12-78); Albumin Level 4.2 g/dl (3.5-5.0); Albumin/Globulin Ratio 1.4 (1.1-1.8); Alkaline Phosphatase 90 U/L (38-126); Anion Gap 12.1 mEq/L (5-15); Aspartate Amino Transferase 25 U/L (14-36); Bilirubin,Total 0.3 mg/dl (0.2-1.3); Blood Urea Nitrogen 11 mg/dl (7-17); Calcium 9.3 mg/dl (8.4-10.2); Carbon Dioxide 31 mmol/L (22.0-30.0); Chloride 104 mmol/L (98-107); Chol/HDL Ratio 4.6 (1-3.5); Cholesterol 246 mg/dl (140-200); Estimated Glomerular Filt Rate 69 ml/min (>60); GFR (African American) 83 ML/MIN (>60); Glucose 89 mg/dl (74-100); HDL Cholesterol 54 mg/dl (40-60); Sodium 143 mmol/L (136-145); Total Protein,Serum 7.2 g/dl (6.3-8.2); Triglycerides 148 mg/dl (30-150); VLDL Cholesterol 30 mg/dL (0-40)
[2023-04-07 11:50] LABS: Direct LDL Cholesterol 134.68 mg/dL (100-129)
[2023-04-07 16:12] LABS: 25-OH Vitamin D, Total 33.4 ng/mL (30-100); Free Thyroxine Index 2.6 ug/dL (5.93-13.13); Thyroid Stimulating Hormone 2.64 uIU/mL (0.465-4.68); Triiodothryronine (T3) Uptake 32 % (23.5-40.5); Vitamin B12 385 pg/mL (239-931)
== END ==
PROVIDERS: PCP Internal Medicine Adolescent Medicine; Visit Provider Internal Medicine Adolescent Medicine
DX: I20.8 Other forms of angina pectoris (principal); R53.81 Other malaise; R53.83 Other fatigue; M79.2 Neuralgia and neuritis, unspecified
CPT/HCPCS: 36415; 80053; 80061; 82306; 82607; 83036; 84436; 84443; 84479; 85025

== ENCOUNTER → 2023-05-21 09:08 | Outpatient (CLI) | payer OTHER, SELFPAY ==
[2023-05-21 10:15] LABS: Basophils % 0.7 % (0.1-2.0); Eosinophils # 0.1 K/mm3 (0.0-0.4); Eosinophils % 1.5 % (0.1-12.0); Hematocrit 39.1 % (37.0-47.0); Hemoglobin 13.4 g/dL (12.2-16.2); Lymphocytes # 2.5 K/mm3 (0.7-4.5); Lymphocytes % 38.6 % (10-50); Mean Corpuscular HGB Conc 34.3 g/dL (31.8-35.4); Mean Corpuscular Hemoglobin 28.9 pg (27.0-31.2); Mean Corpuscular Volume 84.3 fl (81-99); Mean Platelet Volume 7.4 fl (7.4-10.4); Monocytes # 0.3 K/mm3 (0.1-1.0); Monocytes % 4.5 % (1.7-9.3); Neutrophils # 3.6 K/mm3 (1.8-7.8); Neutrophils % 54.7 % (37.0-80.0); Platelet Count 257 K/mm3 (142-424); Red Blood Count 4.64 M/mm3 (4.20-5.40); Red Cell Distribution Width 12.7 % (11.5-17.5); White Blood Count 6.5 K/mm3 (4.8-10.8)
[2023-05-21 10:55] LABS: Erythrocyte Sedimentation Rate 15 mm/hr (0-20)
[2023-05-21 11:15] LABS: Hemoglobin A1C 5.2 % (4.0-6.0)
[2023-05-21 11:22] LABS: Alanine Aminotransferase 18 U/L (12-78); Albumin Level 4.6 g/dl (3.5-5.0); Albumin/Globulin Ratio 1.5 (1.1-1.8); Alkaline Phosphatase 91 U/L (38-126); Anion Gap 11.1 mEq/L (5-15); Aspartate Amino Transferase 30 U/L (14-36); Bilirubin,Total 0.4 mg/dl (0.2-1.3); Blood Urea Nitrogen 11 mg/dl (7-17); Calcium 9.7 mg/dl (8.4-10.2); Carbon Dioxide 32 mmol/L (22.0-30.0); Chloride 102 mmol/L (98-107); Estimated Glomerular Filt Rate 78 ml/min (>60); GFR (African American) 95 ML/MIN (>60); Glucose 92 mg/dl (74-100); Potassium 4.1 mmoL/L (3.5-5.1); Sodium 141 mmol/L (136-145); Total Protein,Serum 7.6 g/dl (6.3-8.2)
[2023-05-21 12:26] LABS: Fibrinogen 423 mg/dL (229.9-363.5)
[2023-05-21 15:45] LABS: C-Reactive Protein 0.4 mg/L (0-4)
[2023-05-22 13:08] LABS: Prealbumin 28 mg/dL (12-34)
[2023-05-26 11:50] LABS: MRSA DNA PCR Negative
== END ==
PROVIDERS: PCP Internal Medicine Adolescent Medicine; Visit Provider Internal Medicine Gastroenterology
DX: K31.84 Gastroparesis (principal)
CPT/HCPCS: 36415; 80053; 83036; 84134; 85025; 85384; 85651; 86140; 87641

== ENCOUNTER → 2023-05-26 08:28 | Outpatient (CLI) | payer OTHER, SELFPAY ==
--- NOTE | 2023-05-26 08:39 | MM_ITS ---
PROCEDURE INFORMATION: Exam: MG Bilateral Screening 3D Mammography Exam date and time: 05/26/2023 8:26 AM Age: 43 years old Clinical indication: Screening examination; Family history of breast cancer in aunt TECHNIQUE: Imaging protocol: Bilateral Screening tomosynthesis and 2D mammography including computer-aided detection (CAD) when performed. COMPARISON: 1. MG MM DIG SCREENING MAMM BI W/CAD 05/13/2022 2:01 PM 2. MG MM DIG SCREENING MAMM BI W/CAD 02/08/2021 8:58 AM FINDINGS: MAMMOGRAPHY: Breast composition: The breasts are heterogeneously dense, which may obscure small masses. Mass: None. Architectural distortion: None. Calcifications: No suspicious calcifications. Asymmetric density: None. Skin thickening: None. Axillary adenopathy: None. IMPRESSION: No mammographic evidence of malignancy. Annual screening is recommended unless otherwise clinically indicated. ASSESSMENT: BI-RADS Category 1: Negative
[2023-05-27 12:11] LABS: Anti-DNA (DS) Ab Qn 1 IU/mL (0-9)
== END ==
PROVIDERS: Physician Assistant; PCP Internal Medicine Adolescent Medicine; Visit Provider Internal Medicine Adolescent Medicine
DX: Z12.31 Encounter for screening mammogram for malignant neoplasm of breast (principal); L65.9 Nonscarring hair loss, unspecified
CPT/HCPCS: 36415; 77063; 77067; 86225

== ENCOUNTER → 2023-06-16 11:48 | Outpatient (CLI) | payer OTHER, SELFPAY ==
--- OUTSIDE RECORDS SUMMARY | 2023-06-16 11:51 | XMS_ITS | Continuity of Care Document ---
Author Name Unknown Organization [facility] Address [address] [place] [address]- Care Team Providers Care River Driver Name Role Phone GLORIA WESLEY (REF) Primary Care Physician Encounter [facility] [id number] Date(s): 05/11/23 - 06/15/23 [facility] [address] [place] [address]- [place] Discharge Disposition: OP Self Care or Home Allergies, Adverse Reactions, Alerts Substance Reaction Severity Status penicillin Anaphylactic reaction Active levothyroxine Wheezing Swelling Nausea Hives Fatique Dizziness Active Medications Advair Diskus 500 mcg-50 mcg inhalation powder See Instructions, BID Start Date: 04/28/23 Status: Ordered Albuterol (Eqv-ProAir HFA) 90 mcg/inh inhalation aerosol 2 Puff, Inhalation, Q6H, PRN as needed for wheezing, 0 Refill(s) Start Date: 04/28/23 Status: Ordered Estrace 1 mg oral tablet 1 mg 1 Tab, Oral, Daily, 0 Refill(s) Start Date: 04/28/23 Status: Ordered Euthyrox 50 mcg (0.05 mg) oral tablet 50 mcg 1 Tab, Oral, Daily, TAKE 1 TABLET 1 TIME EACH DAY Start Date: 04/28/23 Status: Ordered Flonase 1 [place], Nostrils Both, Daily, 0 Refill(s) Start Date: 04/28/23 Status: Ordered levocetirizine 5 mg oral tablet 5 mg 1 Tab, Oral, QPM, TAKE 1 TABLET 1 TIME EACH DAY IN THE EVENING Start Date: 04/28/23 Status: Ordered Linzess 145 mcg oral capsule 145 mcg 1 Cap, Oral, Daily, 0 Refill(s) Start Date: 04/28/23 Status: Ordered promethazine 6.25 mg/5 mL oral syrup 12.5 mg 10 mL, Oral, Q6H, PRN as needed for nausea/vomiting, 0 Refill(s) Start Date: 04/28/23 Status: Ordered rosuvastatin 20 mg oral tablet 20 mg 1 Tab, Oral, Tab, Daily, # 30 Tab, 0 Refill(s) Start Date: 04/28/23 Status: Ordered simethicone 125 mg oral tablet, chewable 125 mg 1 Tab, Chew, QID, CHEW AND SWALLOW 1 TABLET 4 TIMES EACH DAY, AFTER MEALS AND AT BEDTIME Start Date: 04/28/23 Status: Ordered Ubrelvy 50 mg oral tablet 50 mg 1 Tab, Oral, Daily, PRN as needed for migraine headache, TAKE 1 TABLET 1 TIME EACH DAY NEEDED FOR MIGRAINE Start Date: 04/28/23 Status: Ordered
--- OUTSIDE RECORDS SUMMARY | 2023-06-16 11:51 | XMS_ITS | Continuity of Care Document ---
Author Name Unknown Organization [facility] Address [address] [place] [address]- Care Team Providers Care Sheep Farmer Name Role Phone GLORIA WESLEY (REF) Primary Care Physician Encounter [facility] [id number] Date(s): 05/11/23 - 06/15/23 [facility] [address] [place] [address]- [place] Discharge Disposition: OP Self Care or [...] Start Date: 04/28/23 Status: Ordered Flonase 1 [place], Nostrils Both, Daily, 0 Refill(s) Start Date: [...]
--- OUTSIDE RECORDS SUMMARY | 2023-06-16 11:51 | XMS_ITS | Continuity of Care Document ---
Author Name Unknown Organization [facility] Address [address] [place] [address]- Care Team Providers Care Portable Feed Mill Operator Name Role Phone GLORIA WESLEY (REF) Primary Care Physician Encounter [facility]OT [id number] Date(s): 05/11/23 - 06/11/23 [facility] [address] [place] [address]- [place] Discharge Disposition: OP Self Care or Home Allergies, Adverse Reactions, Alerts Substance Reaction Severity Status penicillin Anaphylactic reaction Active levothyroxine Wheezing Swelling Nausea Hives Fatique Dizziness Active Assessment and Plan Future Appointments Appointment Date:06/17/2023 07:00:00 AM Scheduled Provider: Location:[facility] Nuc Med Appointment Type:xx NM Gastric Empty Study 4hr Inj [facility] Appointment Date:06/17/2023 08:00:00 AM Scheduled Provider: Location:[facility] Nuc Med Appointment Type:xx NM Gastric Empty Study 4hr Scan 1 [facility] Appointment Date:06/17/2023 08:45:00 AM Scheduled Provider: Location:[facility] Nuc Med Appointment Type:xx NM Gastric Empty Study 4hr Scan 2 [facility] Appointment Date:06/17/2023 10:00:00 AM Scheduled Provider: Location:[facility] Nuc Med Appointment Type:xx NM Gastric Empty Study 4hr Scan 3 [facility] Appointment Date:06/17/2023 11:15:00 AM Scheduled Provider: Location:[facility] Nuc Med Appointment Type:xx NM Gastric Empty Study 4hr Scan 4 [facility] Appointment Date:06/18/2023 07:30:00 AM Scheduled Provider: Location:[facility] Endo Appointment Type:[facility] Surgery Appointment Date:06/24/2023 09:30:00 AM Scheduled Provider: Location:[facility] Nuc Med Appointment Type:xx NM Gastric Empty Study 4hr Inj [facility] Appointment Date:06/24/2023 10:30:00 AM Scheduled Provider: Location:[facility] Nuc [facility] Appointment Type:xx NM Gastric Empty Study 4hr Scan 1 [facility] Appointment Date:06/24/2023 11:15:00 AM Scheduled Provider: Location:[facility] Nuc [facility] Appointment Type:xx NM Gastric Empty Study 4hr Scan 2 [facility] Appointment Date:06/24/2023 12:30:00 PM Scheduled Provider: Location:[facility] Nuc [facility] Appointment Type:xx NM Gastric Empty Study 4hr Scan 3 [facility] Appointment Date:06/24/2023
--- OUTSIDE RECORDS SUMMARY | 2023-06-16 11:51 | XMS_ITS | Continuity of Care Document ---
Author Name Unknown Organization [facility] Address [address] [place] [id number]- Care Team Providers Care Centrifugal Wax Molder Name Role Phone GLORIA WESLEY (REF) Primary Care Physician [phone] Encounter [facility] [id number] Date(s): 04/14/23 - 04/21/23 [facility] [address] [place] [id number]- [place] Discharge Disposition: OP Self Care or Home Attending Physician: RUBIN GREENE MD-GAE Admitting Physician: RUBIN GREENE MD-GAE Referring Physician: RUBIN GREENE MD-GAE Assessment and Plan Future Appointments Appointment Date:05/01/2023 11:30:00 AM Scheduled Provider: Location:[facility] Endoscopy Appointment Type:[facility] Surgery Results Radiology Reports * Exam Date Time Procedure Performing Provider Status 04/21/23 9:48 AM NM Gastric Empty Study KEYONA GARCIA, MAJOR GIFTS MANAGER; Modified Notes: (NM Gastric Empty Study) Reason For Exam: Other dysphagia;Other dysphagia REPORT INDICATION: Other dysphagia. DOSE: * 0.561 mCi Tc99m sulfur colloid cooked into solid scrambled egg administered in protocol meal. TECHNIQUE: Anterior and posterior abdominal images were obtained intermittently for 4 hours. Measured gastric activity was utilized to calculate solid gastric emptying statistics. COMPARISON: None. FINDINGS: Continuous solid gastric emptying was demonstrated throughout the exam. Gastric emptying ejection fraction: 58% at 60 minutes, (normal 10% or greater) 82% at 2 hours (normal 40% or greater) 95% at 3 hours (normal 60% or greater) IMPRESSION: No evidence of delayed solid gastric emptying. Dictated by: Josefina Quach M.D. Signed by Josefina Quach M.D. on 2023 12:54 Final Dictated by: JOSEFINA QUACH MD-RAD Dictated DT/TM: 2023 12:54 pm Interpreted and electronically signed by: JOSEFINA QUACH MD-RAD Signed DT/TM: 2023 12:54 pm ADDENDUM TECHNIQUE: Anterior and posterior abdominal images were obtained intermittently for 3 hours. Measured gastric activity was utilized to calculate solid gastric emptying statistics. Dictated by: Josefina Quach M.D. Signed by Josefina Quach M.D. on 2023 12:
--- OUTSIDE RECORDS SUMMARY | 2023-06-16 11:56 | XMS_ITS | Patient Health Record ---
Author Name Unknown Organization [facility] Address [address] [facility] [facility] [place] [address] Care Team Providers Care Finance Effectiveness Manager Name Role Phone FloLachelle soni Unavailable [phone] Rina Mendez Unavailable [phone] PROBLEMS Type Condition ICD9-CM Code SEJ74-OH Code Onset Dates Condition Status W/U Status Risk SNOMED Code Notes Problem Mixed stress and urge urinary incontinence N39.46 confirmed 848106234 Problem Surgical menopause E89.40 confirmed 170852348 Problem Pelvic pain R10.2 confirmed [id number] ALLERGIES Allergen (clinical drug ingredient) Drug/Non Drug Allergy documented on EMR Reaction Allergy Type Onset Date Status penicillin G Penicillin G Sodium([facility] Code:[address]-45) Unknown Drug Allergy Active levothyroxine Levothyroxine Unknown Drug Allergy Active ENCOUNTERS from 1980 to 2023-06-16 Encounter Location Date Provider Diagnosis [facility] [address] [facility] [address] [place] [address] Mar, Lachelle Orozco [facility] [address] [facility] [address] [place] [address] Sep, Mike
--- OUTSIDE RECORDS SUMMARY | 2023-06-16 11:56 | XMS_ITS | Patient Health Record ---
Author Name Unknown Organization [facility] Address [address] [facility] [address] [place] [address] Care Team Providers Care Icer Machine Operator Name Role Phone David Stout Primary Care Provider [phone] David Stout Unavailable Unavailable Anusha Vargas Unavailable [phone] Trice Shay Unavailable [phone] ALLERGIES Allergen (clinical drug ingredient) Drug/Non Drug Allergy documented on EMR Reaction Allergy Type Onset Date Status penicillin anaphylaxis Drug Allergy Acti ve RESULTS Component Value Reference Range Notes Urinalysis Reviewed date:01/27/2023 08:20:49 PM Interpretation: Performing Lab: Notes/Report: Color/Clarity dk yellow Leuk neg Nitrite neg Urobili 0.2 Protein neg pH 6.5 Blood trace-intact Sp. Gr. >=1.030 Ketone neg Bili neg Glucose X ray : Spines, Lumbar Reviewed date:02/02/2023 01:23:55 PM Interpretation: Performing Lab: Notes/Report:
--- NOTE | 2023-06-16 11:57 | XR_ITS ---
FINAL REPORT CLINICAL HISTORY: knee pain FINDINGS: AP, lateral and oblique views of the left knee were obtained. There is no prior exam for comparison. There is no acute osseous abnormality of the left knee. The joint space is preserved. The soft tissues are normal. There is no joint effusion. IMPRESSION: No acute osseous abnormality of the left knee. Reviewed, Interpreted and Dictated by Kaylin Canela MD Transcribed by David Wylie Authenticated and [facility]
--- NOTE | 2023-06-16 11:57 | XR_ITS ---
FINAL REPORT CLINICAL HISTORY: knee pain FINDINGS: AP, lateral and oblique views of the right knee were obtained. There is no prior exam for comparison. There is no acute osseous abnormality of the right knee. The joint space is preserved. The soft tissues are normal. There is no joint effusion. IMPRESSION: No acute osseous abnormality of the right knee. Reviewed, Interpreted and Dictated by Kaylin Canela MD Transcribed by David Wylie Authenticated and [facility]
== END ==
PROVIDERS: PCP Internal Medicine Adolescent Medicine; Visit Provider Nurse Practitioner Family
DX: M25.561 Pain in right knee (principal); M25.562 Pain in left knee
CPT/HCPCS: 73562